=== PATIENT | female | born 1975 | race Caucasian/White ===

== ENCOUNTER → 2018-04-18 08:27 | Outpatient (CLI) | payer OTHER, SELFPAY ==
[2018-04-18 12:00] LABS: Absolute Lymphocyte Count 2.18 X10^3/ul (0.83-4.51); Absolute Neutrophil Count 3.6 X10^3/uL (2.0-7.7); Basophil# 0.03 X10^3/uL; Basophil% 0.5 % (0-1); Eosinophil# 0.15 X10^3/uL; Eosinophils% 2.3 % (0-5); Hematocrit 33.5 % (37-47); Hemoglobin 10.4 g/dl (12.0-15.0); Lymphocyte # 2.18 X10^3/ul (4.0); Lymphocyte % 33.5 % (19-41); Mean Corpuscular Hgb 26.1 pg (27.0-32.0); Mean Corpuscular Volume 84.2 fL (81-99); Mean Platelet Vol. 10.1 fl (6.2-12.0); Monocyte# 0.51 X10^3/uL; Monocyte% 7.8 % (0-10); Neutrophil # 3.63 X10^3/uL (2.7-7.7); Neutrophil % 55.7 % (47-70); Platelet Count 273 K/mm3 (150-450); RBC Distribution Width CV 15.8 % (11.6-14.6); RBC Distribution Width SD 47.7 fl (35.1-43.9); Red Blood Count 3.98 M/mm3 (4.2-5.4); White Blood Count 6.5 K/mm3 (4.4-11.0)
[2018-04-18 12:09] LABS: POSITIVE COUNT NO; POSITIVE DIFFERENTIAL NO; POSITIVE MORPHOLOGY NO
[2018-04-18 12:13] LABS: ALB/GLOB Ratio 0.9 RATIO (0.9-2.4); AST(SGOT) 29 U/L (15-37); Alanine Aminotransfer ALT/SGPT 41 U/L (13-56); Albumin, Serum 3.4 g/dL (3.2-5.0); Alkaline Phosphatase 83 U/L (45-117); Anion Gap 9 (5-15); BUN 16 mg/dL (7-18); BUN/Creat Ratio 18.6 RATIO (10-20); Calcium,Total 8.2 mg/dL (8.5-10.1); Chloride 104 mmol/L (98-107); Cholesterol 130 mg/dL (200); Creatinine, Serum 0.86 mg/dL (0.55-1.02); EST Glomerular Filtration Rate 77 mL/min (>60); Est Glom Filt Rate - Afr Amer 93 mL/min (>60); Globulin 3.7 g/dL (2.2-4.2); Glucose 78 mg/dL (74-106); High Density Lipoprotein 60 mg/dL; Potassium 3.8 mmol/L (3.5-5.1); Protein, Total 7.1 g/dL (6.4-8.2); Sodium Level 141 mmol/L (136-145); Triglycerides 45 mg/dL; Very Low Density Lipoprotein 9 mg/dL (5-40)
[2018-04-18 12:30] LABS: Microalbumin,Random Urine 5.6 mg/L (NO RANGE EST.)
== END ==
PROVIDERS: Family Provider Family Medicine; PCP Family Medicine; Visit Provider Family Medicine
DX: Z00.00 Encounter for general adult medical examination without abnormal findings (principal); I10 Essential (primary) hypertension
CPT/HCPCS: 36415; 80053; 80061; 82043; 82570; 85025

== ENCOUNTER → 2018-04-25 15:50 | Outpatient (CLI) | payer OTHER, SELFPAY ==
[2018-04-25 17:39] LABS: Absolute Lymphocyte Count 1.91 X10^3/ul (0.83-4.51); Absolute Neutrophil Count 3.5 X10^3/uL (2.0-7.7); Basophil# 0.03 X10^3/uL; Basophil% 0.5 % (0-1); Eosinophil# 0.13 X10^3/uL; Eosinophils% 2.1 % (0-5); Hematocrit 35.9 % (37-47); Hemoglobin 11.1 g/dl (12.0-15.0); Lymphocyte # 1.91 X10^3/ul (4.0); Lymphocyte % 31.3 % (19-41); Mean Corp Hgb Conc 30.9 g/gl (32-36); Mean Corpuscular Hgb 25.3 pg (27.0-32.0); Mean Corpuscular Volume 81.8 fL (81-99); Mean Platelet Vol. 9.6 fl (6.2-12.0); Monocyte# 0.52 X10^3/uL; Monocyte% 8.5 % (0-10); Neutrophil % 57.4 % (47-70); Platelet Count 277 K/mm3 (150-450); RBC Distribution Width CV 15.7 % (11.6-14.6); RBC Distribution Width SD 47.2 fl (35.1-43.9); Red Blood Count 4.39 M/mm3 (4.2-5.4); White Blood Count 6.1 K/mm3 (4.4-11.0)
[2018-04-25 17:43] LABS: Ferritin 7 ng/mL (8-252); Iron 28 ug/dL (50-170); LDH 207 U/L (84-246)
[2018-04-25 17:45] LABS: POSITIVE COUNT NO; POSITIVE DIFFERENTIAL NO; POSITIVE MORPHOLOGY NO
[2018-04-25 17:51] LABS: Vitamin B12 433 pg/mL (211-911); Vitamin D,25 Hydroxy 37.5 ng/mL (29.95-100.01)
== END ==
PROVIDERS: Family Provider Family Medicine; PCP Family Medicine; Visit Provider Family Medicine
DX: I10 Essential (primary) hypertension (principal); R80.9 Proteinuria, unspecified; D64.9 Anemia, unspecified
CPT/HCPCS: 36415; 82306; 82607; 82728; 83540; 83615; 85025

== ENCOUNTER → 2018-11-10 16:51 | Outpatient (CLI) | payer OTHER, SELFPAY ==
--- NOTE | 2018-11-10 16:51 | BI_ITS ---
MAMMOGRAPHY - BILATERAL SCREENING REASON FOR EXAM: Female, 43 years old. Routine annual screening examination. PERTINENT HISTORY: Non-contributory. TECHNIQUE: Digital bilateral breast anuel (3D mammographic acquisition) in the CC and MLO projections. 2-D mediolateral oblique (MLO) and craniocaudad (CC) views of both breasts were obtained. CAD: Full Field Digital Mammography with Computer Added Detection was performed. COMPARISON: Comparison is made with prior study dated March 05, 2016. FINDINGS: Breast Composition: The breasts are almost entirely fatty. There are no dominant masses or suspicious calcifications. No other significant abnormalities are identified. There has been no significant change since the prior study. BI/SCREENING MAMM (CAD), BILAT IMPRESSION: Stable bilateral screening mammogram. Yearly follow-up mammogram recommended. (A) ASSESSMENT CATEGORY: BIRADS Category 1: Negative. A letter regarding these results will be sent to the patient by the facility within 30 days. Approximately 10% of breast cancers are not detected by mammography. A normal mammogram should not delay biopsy of a clinically suspicious abnormality. [id number] Electronically Signed: Matias Smith, at 9:52 EST , Service support ,
== END ==
PROVIDERS: Family Provider Family Medicine; PCP Family Medicine; Referring Provider Obstetrics & Gynecology; Visit Provider Obstetrics & Gynecology
DX: Z12.31 Encounter for screening mammogram for malignant neoplasm of breast (principal)
CPT/HCPCS: 77063; 77067

== ENCOUNTER → 2019-01-19 17:57 | Outpatient (CLI) | payer OTHER, SELFPAY ==
--- NOTE | 2019-01-19 18:11 | MRI_ITS ---
STUDY: MRI LEFT FOREFOOT WITHOUT CONTRAST REASON FOR EXAM: Female, 44 years old. Pain. Numbness in this toes. Evaluate first intermetatarsal space TECHNIQUE: Standardized fat and water weighted pulse sequences were obtained in all 3 orthogonal planes. COMPARISON: None. FINDINGS: Joint effusion metatarsophalangeal joint of the hallux. Normal tibial and fibular sesamoids, with normal sesamoids-first metatarsal articulations. Normal interphalangeal joint of the hallux. Normal proximal and distal phalanges of the great toe. Normal medial and lateral heads of the flexor hallucis brevis tendons. Normal flexor and extensor hallucis longus tendons. Effusions of the second through fifth metatarsophalangeal (MTP) joints. Normal interphalangeal joints of the second through fifth toes. Normal proximal, middle and distal phalanges of the second through fifth toes. There is intermetatarsal bursitis of the first through fourth intermetatarsal spaces, coronal series 9 images 14/24 through 16/24. There is a 0.4 cm interdigital neuroma at the second interspace, series 7 image 26/40. Normal flexor and extensor tendons of the second through fifth toes. Marrow edema of the base and proximal shaft of the second metatarsal, series 9 image 11/24. Marrow edema of the medial and intermediate cuneiform bones. Normal intrinsic muscles of the forefoot. There is no demonstrated soft tissue abnormality. MRI/Lower Ext/No Jt/w/o IMPRESSION: Joint effusions of the metatarsophalangeal articulations. There is intermetatarsal bursitis of the first through fourth interspaces. There is interdigital neuroma at the second interspace. Bone bruise or stress injury of the base of the second metatarsal and the medial and intermediate cuneiform bones. Electronically Signed: Jr Santa MD at 8:25 EDT , Service support ,
== END ==
PROVIDERS: Family Provider Family Medicine; PCP Family Medicine; Referring Provider Podiatrist; Visit Provider Podiatrist
DX: S94.2 Injury of deep peroneal nerve at ankle and foot level (principal); G57.62 Lesion of plantar nerve, left lower limb; S90.32XD Contusion of left foot, subsequent encounter; M79.672 Pain in left foot
CPT/HCPCS: 73718

== ENCOUNTER → 2019-08-14 10:16 | Outpatient (CLI) | payer OTHER, SELFPAY ==
[2017-05-15 21:00] VITALS: BMI 30.4
[2019-08-14 12:29] LABS: ALB/GLOB Ratio 0.9 RATIO (0.9-2.4); AST(SGOT) 32 U/L (15-37); Alanine Aminotransfer ALT/SGPT 57 U/L (13-56); Albumin, Serum 3.6 g/dL (3.2-5.0); Alkaline Phosphatase 89 U/L (45-117); Anion Gap 7 (5-15); BUN 11 mg/dL (7-18); BUN/Creat Ratio 13.6 RATIO (10-20); Calcium,Total 8.6 mg/dL (8.5-10.1); Chloride 104 mmol/L (98-107); Cholesterol 143 mg/dL (200); Creatinine, Serum 0.81 mg/dL (0.55-1.02); EST Glomerular Filtration Rate 81 mL/min (>60); Est Glom Filt Rate - Afr Amer 98 mL/min (>60); Glucose 115 mg/dL (74-106); High Density Lipoprotein 64 mg/dL; Potassium 3.3 mmol/L (3.5-5.1); Protein, Total 7.6 g/dL (6.4-8.2); Sodium Level 137 mmol/L (136-145); T4 Free Direct 1.14 ng/dL (0.76-1.46); Triglycerides 66 mg/dL; Very Low Density Lipoprotein 13 mg/dL (5-40)
[2019-08-14 12:36] LABS: Absolute Lymphocyte Count 1.83 X10^3/uL (0.83-4.51); Absolute Neutrophil Count 5.1 X10^3/uL (2.0-7.7); Basophil# 0.04 X10^3/uL; Basophil% 0.5 % (0-1); Eosinophil# 0.14 X10^3/uL; Eosinophils% 1.8 % (0-5); Hematocrit 39.1 % (37-47); Hemoglobin 12.2 g/dL (12.0-15.0); Lymphocyte # 1.83 X10^3/ul (4.0); Lymphocyte % 23.6 % (19-41); Mean Corp Hgb Conc 31.2 g/dL (32-36); Mean Corpuscular Hgb 27.1 pg (27.0-32.0); Mean Corpuscular Volume 86.7 fL (81-99); Mean Platelet Vol. 9.6 fl (6.2-12.0); Monocyte# 0.59 X10^3/uL; Monocyte% 7.6 % (0-10); NRBC Flagged by Analyzer 0 % (0-5); Neutrophil # 5.12 X10^3/uL (2.7-7.7); Neutrophil % 66.1 % (47-70); Platelet Count 332 K/mm3 (150-450); RBC Distribution Width CV 14.3 % (11.6-14.6); RBC Distribution Width SD 45.1 fl (35.1-43.9); Red Blood Count 4.51 M/mm3 (4.2-5.4); White Blood Count 7.8 K/mm3 (4.4-11.0)
== END ==
PROVIDERS: Family Provider Family Medicine; PCP Family Medicine; Visit Provider Family Medicine
DX: Z00.00 Encounter for general adult medical examination without abnormal findings (principal); R53.83 Other fatigue
CPT/HCPCS: 36415; 80053; 80061; 84439; 84443; 85025

== ENCOUNTER → 2020-08-26 17:29 | Outpatient (CLI) | payer OTHER, SELFPAY | PROVIDERS: PCP Family Medicine; Referring Provider Family Medicine; Visit Provider Family Medicine | DX: Z03.818 Encounter for observation for suspected exposure to other biological agents ruled out (principal) | CPT/HCPCS: 87635; C9803; U0003 ==

== ENCOUNTER 2021-11-15 10:28 | Outpatient (CLI) | payer OTHER, SELFPAY ==
[2021-11-19 13:37] LABS: Thyroid Stim Immunoglob 4.93 IU/L (0.00-0.55)
== END 2021-11-15 23:59 | disposition home or self-care (01) ==
LOC: LAB 10:30
PROVIDERS: PCP Family Medicine; Referring Provider Family Medicine; Visit Provider Family Medicine
DX: E05.90 Thyrotoxicosis, unspecified without thyrotoxic crisis or storm (principal)
CPT/HCPCS: 36415; 84445

== ENCOUNTER 2021-12-18 07:18 | Outpatient (CLI) | payer OTHER, SELFPAY ==
[2021-12-18 09:06] LABS: Free T3 3.4 pg/mL (2.18-3.98); T4 Free Direct 1.41 ng/dL (0.76-1.46)
== END 2021-12-18 23:59 | disposition home or self-care (01) ==
LOC: LAB 07:19
PROVIDERS: PCP Family Medicine; Referring Provider Internal Medicine Endocrinology, Diabetes & Metabolism; Visit Provider Internal Medicine Endocrinology, Diabetes & Metabolism
DX: E05.00 Thyrotoxicosis with diffuse goiter without thyrotoxic crisis or storm (principal)
CPT/HCPCS: 36415; 84439; 84481

== ENCOUNTER → 2022-01-21 | Outpatient (CLI) | payer OTHER, SELFPAY ==
[2022-01-21 08:05] LABS: Free T3 2.4 pg/mL (2.18-3.98); T4 Free Direct 1.05 ng/dL (0.76-1.46)
== END | disposition home or self-care (01) ==
LOC: LAB 06:49
PROVIDERS: PCP Family Medicine; Referring Provider Nurse Practitioner Adult Health; Visit Provider Nurse Practitioner Adult Health
DX: E05.00 Thyrotoxicosis with diffuse goiter without thyrotoxic crisis or storm (principal)
CPT/HCPCS: 36415; 84439; 84481

== ENCOUNTER → 2022-02-12 | Outpatient (CLI) | payer OTHER, SELFPAY ==
[2022-02-12 11:16] LABS: Absolute Lymphocyte Count 1.75 X10^3/uL (0.83-4.51); Basophil# 0.03 X10^3/uL; Basophil% 0.6 % (0-1); Eosinophils% 1.8 % (0-5); Hematocrit 37.8 % (37-47); Hemoglobin 12.1 g/dL (12.0-15.0); Lymphocyte # 1.75 X10^3/ul (0.83-4.51); Lymphocyte % 32.2 % (19-41); Mean Corpuscular Hgb 27.4 pg (27.0-32.0); Mean Corpuscular Volume 85.5 fL (81-99); Mean Platelet Vol. 9.6 fl (6.2-12.0); Monocyte# 0.53 X10^3/uL; Monocyte% 9.7 % (0-10); NRBC Flagged by Analyzer 0 % (0-5); Neutrophil # 3.02 X10^3/uL (2.7-7.7); Neutrophil % 55.5 % (47-70); Platelet Count 253 K/mm3 (150-450); RBC Distribution Width CV 14.6 % (11.6-14.6); RBC Distribution Width SD 45.9 fl (35.1-43.9); Red Blood Count 4.42 M/mm3 (4.2-5.4); White Blood Count 5.4 K/mm3 (4.4-11.0)
[2022-02-12 15:26] LABS: ALB/GLOB Ratio 0.8 RATIO (0.9-2.4); AST(SGOT) 22 U/L (15-37); Alanine Aminotransfer ALT/SGPT 35 U/L (13-56); Albumin, Serum 3.3 g/dL (3.2-5.0); Alkaline Phosphatase 105 U/L (45-117); Anion Gap 6 (5-15); BUN 13 mg/dL (7-18); BUN/Creat Ratio 18.4 RATIO (10-20); Calcium,Total 8.8 mg/dL (8.5-10.1); Chloride 106 mmol/L (98-107); Creatinine, Serum 0.71 mg/dL (0.55-1.02); EST Glomerular Filtration Rate 94 mL/min (>60); Est Glom Filt Rate - Afr Amer 114 mL/min (>60); Glucose 93 mg/dL (74-106); Potassium 3.9 mmol/L (3.5-5.1); Protein, Total 7.3 g/dL (6.4-8.2); Sodium Level 138 mmol/L (136-145); Thyroid Stim Hormone (TSH) < 0.01 uIU/mL (0.358-3.74)
== END | disposition home or self-care (01) ==
LOC: LAB 09:59
PROVIDERS: PCP Family Medicine; Visit Provider Nurse Practitioner Adult Health
DX: E05.00 Thyrotoxicosis with diffuse goiter without thyrotoxic crisis or storm (principal); E61.1 Iron deficiency
CPT/HCPCS: 36415; 80053; 84439; 84443; 84481; 85025

== ENCOUNTER → 2022-03-10 | Outpatient (CLI) | payer OTHER, SELFPAY ==
[2022-03-10 10:21] LABS: Free T3 3.2 pg/mL (2.18-3.98); T4 Free Direct 1.33 ng/dL (0.76-1.46)
== END | disposition home or self-care (01) ==
LOC: LAB 08:51
PROVIDERS: PCP Family Medicine; Referring Provider Nurse Practitioner Adult Health; Visit Provider Nurse Practitioner Adult Health
DX: E05.00 Thyrotoxicosis with diffuse goiter without thyrotoxic crisis or storm (principal)
CPT/HCPCS: 36415; 84439; 84481

== ENCOUNTER → 2022-04-01 | Outpatient (CLI) | payer OTHER, SELFPAY ==
[2022-04-01 11:09] LABS: ALB/GLOB Ratio 0.8 RATIO (0.9-2.4); AST(SGOT) 23 U/L (15-37); Alanine Aminotransfer ALT/SGPT 36 U/L (13-56); Albumin, Serum 3.4 g/dL (3.2-5.0); Alkaline Phosphatase 93 U/L (45-117); Anion Gap 7 (5-15); BUN 17 mg/dL (7-18); BUN/Creat Ratio 19.8 RATIO (10-20); Calcium,Total 8.9 mg/dL (8.5-10.1); Chloride 103 mmol/L (98-107); Creatinine, Serum 0.86 mg/dL (0.55-1.02); EST Glomerular Filtration Rate 75 mL/min (>60); Est Glom Filt Rate - Afr Amer 91 mL/min (>60); Free T3 3.4 pg/mL (2.18-3.98); Glucose 101 mg/dL (74-106); Potassium 3.5 mmol/L (3.5-5.1); Protein, Total 7.4 g/dL (6.4-8.2); Sodium Level 137 mmol/L (136-145); T4 Free Direct 1.53 ng/dL (0.76-1.46); Thyroid Stim Hormone (TSH) < 0.01 uIU/mL (0.358-3.74)
== END | disposition home or self-care (01) ==
LOC: LAB 10:21
PROVIDERS: PCP Family Medicine; Referring Provider Nurse Practitioner Adult Health; Visit Provider Nurse Practitioner Adult Health
DX: E05.00 Thyrotoxicosis with diffuse goiter without thyrotoxic crisis or storm (principal)
CPT/HCPCS: 36415; 80053; 84439; 84443; 84481

== ENCOUNTER → 2022-04-27 | Outpatient (CLI) | payer OTHER, SELFPAY ==
[2022-04-27 08:38] LABS: Anion Gap 6 (5-15); BUN 18 mg/dL (7-18); BUN/Creat Ratio 20.2 RATIO (10-20); Calcium,Total 8.7 mg/dL (8.5-10.1); Chloride 104 mmol/L (98-107); Creatinine, Serum 0.89 mg/dL (0.55-1.02); EST Glomerular Filtration Rate 72 mL/min (>60); Est Glom Filt Rate - Afr Amer 87 mL/min (>60); Glucose 93 mg/dL (74-106); Potassium 3.8 mmol/L (3.5-5.1); Sodium Level 138 mmol/L (136-145)
[2022-04-30 10:09] LABS: Free T3 2.8 pg/mL (2.18-3.98); T4 Free Direct 1.18 ng/dL (0.76-1.46)
== END | disposition home or self-care (01) ==
LOC: LAB 07:35
PROVIDERS: PCP Family Medicine; Referring Provider Nurse Practitioner Adult Health; Visit Provider Nurse Practitioner Adult Health
DX: E05.00 Thyrotoxicosis with diffuse goiter without thyrotoxic crisis or storm (principal)
CPT/HCPCS: 36415; 80048; 84439; 84481

== ENCOUNTER → 2022-05-14 | Outpatient (CLI) | payer OTHER, SELFPAY ==
[2022-05-14 08:06] LABS: Free T3 2.5 pg/mL (2.18-3.98); T4 Free Direct 0.98 ng/dL (0.76-1.46); Thyroid Stim Hormone (TSH) 0.09 uIU/mL (0.358-3.74)
== END | disposition home or self-care (01) ==
LOC: LAB 06:34
PROVIDERS: PCP Family Medicine; Referring Provider Internal Medicine Endocrinology, Diabetes & Metabolism; Visit Provider Internal Medicine Endocrinology, Diabetes & Metabolism
DX: E05.00 Thyrotoxicosis with diffuse goiter without thyrotoxic crisis or storm (principal)
CPT/HCPCS: 36415; 84439; 84443; 84481

== ENCOUNTER → 2022-05-30 | Outpatient (CLI) | payer OTHER, SELFPAY ==
[2022-05-30 10:30] LABS: T4 Free Direct 0.82 ng/dL (0.76-1.46); Thyroid Stim Hormone (TSH) 1.57 uIU/mL (0.358-3.74)
== END | disposition home or self-care (01) ==
LOC: LAB 09:11
PROVIDERS: PCP Family Medicine; Referring Provider Internal Medicine Endocrinology, Diabetes & Metabolism; Visit Provider Internal Medicine Endocrinology, Diabetes & Metabolism
DX: E05.00 Thyrotoxicosis with diffuse goiter without thyrotoxic crisis or storm (principal)
CPT/HCPCS: 36415; 84439; 84443; 84481

== ENCOUNTER → 2022-06-12 | Outpatient (CLI) | payer OTHER, SELFPAY ==
[2022-06-12 08:50] LABS: Anion Gap 8 (5-15); BUN 12 mg/dL (7-18); BUN/Creat Ratio 12.2 RATIO (10-20); Calcium,Total 9.5 mg/dL (8.5-10.1); Chloride 101 mmol/L (98-107); Creatinine, Serum 0.98 mg/dL (0.55-1.02); EST Glomerular Filtration Rate 64 mL/min (>60); Est Glom Filt Rate - Afr Amer 78 mL/min (>60); Glucose 113 mg/dL (74-106); Potassium 3.2 mmol/L (3.5-5.1); Sodium Level 139 mmol/L (136-145)
== END | disposition home or self-care (01) ==
LOC: LAB 07:33
PROVIDERS: PCP Family Medicine; Referring Provider Internal Medicine Endocrinology, Diabetes & Metabolism; Visit Provider Internal Medicine Endocrinology, Diabetes & Metabolism
DX: E05.00 Thyrotoxicosis with diffuse goiter without thyrotoxic crisis or storm (principal)
CPT/HCPCS: 36415; 80048

== ENCOUNTER → 2022-06-15 | Outpatient (CLI) | payer OTHER, SELFPAY ==
[2022-06-15 15:30] LABS: Anion Gap 10 (5-15); BUN 13 mg/dL (7-18); Calcium,Total 8.9 mg/dL (8.5-10.1); Chloride 100 mmol/L (98-107); Creatinine, Serum 0.93 mg/dL (0.55-1.02); EST Glomerular Filtration Rate 69 mL/min (>60); Est Glom Filt Rate - Afr Amer 83 mL/min (>60); Glucose 97 mg/dL (74-106); Magnesium 1.7 mg/dL (1.6-2.6); Potassium 3.3 mmol/L (3.5-5.1); Sodium Level 136 mmol/L (136-145)
== END | disposition home or self-care (01) ==
LOC: LAB 13:40
PROVIDERS: PCP Family Medicine; Referring Provider Nurse Practitioner Adult Health; Visit Provider Nurse Practitioner Adult Health
DX: E89.0 Postprocedural hypothyroidism (principal); E61.2 Magnesium deficiency; E87.6 Hypokalemia
CPT/HCPCS: 36415; 80048; 83735

== ENCOUNTER → 2022-06-22 | Outpatient (CLI) | payer OTHER, SELFPAY ==
[2022-06-22 17:35] LABS: Anion Gap 6 (5-15); BUN 18 mg/dL (7-18); BUN/Creat Ratio 18.5 RATIO (10-20); Calcium,Total 9.2 mg/dL (8.5-10.1); Chloride 103 mmol/L (98-107); Creatinine, Serum 0.98 mg/dL (0.55-1.02); EST Glomerular Filtration Rate 65 mL/min (>60); Est Glom Filt Rate - Afr Amer 79 mL/min (>60); Glucose 99 mg/dL (74-106); Potassium 3.8 mmol/L (3.5-5.1); Sodium Level 138 mmol/L (136-145)
== END | disposition home or self-care (01) ==
LOC: LAB 16:29
PROVIDERS: PCP Family Medicine; Referring Provider Internal Medicine Endocrinology, Diabetes & Metabolism; Visit Provider Internal Medicine Endocrinology, Diabetes & Metabolism
DX: E87.6 Hypokalemia (principal)
CPT/HCPCS: 36415; 80048

== ENCOUNTER → 2022-07-23 | Outpatient (CLI) | payer OTHER, SELFPAY ==
[2022-07-23 08:45] LABS: ALB/GLOB Ratio 0.9 RATIO (0.9-2.4); AST(SGOT) 27 U/L (15-37); Alanine Aminotransfer ALT/SGPT 47 U/L (13-56); Albumin, Serum 3.4 g/dL (3.2-5.0); Alkaline Phosphatase 110 U/L (45-117); Anion Gap 5 (5-15); BUN 16 mg/dL (7-18); BUN/Creat Ratio 17.3 RATIO (10-20); Calcium,Total 8.8 mg/dL (8.5-10.1); Chloride 103 mmol/L (98-107); Creatinine, Serum 0.93 mg/dL (0.55-1.02); EST Glomerular Filtration Rate 69 mL/min (>60); Est Glom Filt Rate - Afr Amer 83 mL/min (>60); Globulin 3.9 g/dL (2.2-4.2); Glucose 92 mg/dL (74-106); Protein, Total 7.3 g/dL (6.4-8.2); Sodium Level 136 mmol/L (136-145)
== END | disposition home or self-care (01) ==
LOC: LAB 07:13
PROVIDERS: PCP Family Medicine; Visit Provider Nurse Practitioner Adult Health
DX: E89.0 Postprocedural hypothyroidism (principal)
CPT/HCPCS: 36415; 80053; 84439; 84443

== ENCOUNTER → 2022-09-03 | Outpatient (CLI) | payer OTHER, SELFPAY ==
[2022-09-03 12:39] LABS: Anion Gap 3 (5-15); BUN 18 mg/dL (7-18); BUN/Creat Ratio 18.1 RATIO (10-20); Calcium,Total 9.3 mg/dL (8.5-10.1); Chloride 105 mmol/L (98-107); Creatinine, Serum 0.99 mg/dL (0.55-1.02); EST Glomerular Filtration Rate 64 mL/min (>60); Est Glom Filt Rate - Afr Amer 77 mL/min (>60); Glucose 92 mg/dL (74-106); Potassium 4.3 mmol/L (3.5-5.1); Sodium Level 137 mmol/L (136-145); Thyroid Stim Hormone (TSH) 5.24 uIU/mL (0.358-3.74)
== END | disposition home or self-care (01) ==
LOC: LAB 11:25
PROVIDERS: PCP Family Medicine; Referring Provider Nurse Practitioner Adult Health; Visit Provider Nurse Practitioner Adult Health
DX: E89.0 Postprocedural hypothyroidism (principal)
CPT/HCPCS: 36415; 80048; 84443

== ENCOUNTER → 2022-10-19 | Outpatient (CLI) | payer OTHER, SELFPAY ==
[2022-10-19 18:39] LABS: Thyroid Stim Hormone (TSH) 0.35 uIU/mL (0.358-3.74)
== END | disposition home or self-care (01) ==
LOC: MTLAB 16:45
PROVIDERS: PCP Family Medicine; Referring Provider Internal Medicine Endocrinology, Diabetes & Metabolism; Visit Provider Internal Medicine Endocrinology, Diabetes & Metabolism
DX: E89.0 Postprocedural hypothyroidism (principal)
CPT/HCPCS: 36415; 84443

== ENCOUNTER → 2022-12-23 | Outpatient (CLI) | payer OTHER, SELFPAY ==
[2022-12-23 12:00] LABS: ALB/GLOB Ratio 0.9 RATIO (0.9-2.4); AST(SGOT) 32 U/L (15-37); Alanine Aminotransfer ALT/SGPT 49 U/L (13-56); Albumin, Serum 3.6 g/dL (3.2-5.0); Alkaline Phosphatase 117 U/L (45-117); Anion Gap 3 (5-15); BUN 14 mg/dL (7-18); BUN/Creat Ratio 14.7 RATIO (10-20); Calcium,Total 9.6 mg/dL (8.5-10.1); Chloride 106 mmol/L (98-107); Creatinine, Serum 0.96 mg/dL (0.55-1.02); EST Glomerular Filtration Rate 66 mL/min (>60); Est Glom Filt Rate - Afr Amer 80 mL/min (>60); Globulin 4.2 g/dL (2.2-4.2); Glucose 97 mg/dL (74-106); Protein, Total 7.8 g/dL (6.4-8.2); Sodium Level 136 mmol/L (136-145); Thyroid Stim Hormone (TSH) 0.91 uIU/mL (0.358-3.74)
== END | disposition home or self-care (01) ==
LOC: LAB 10:30
PROVIDERS: PCP Family Medicine; Referring Provider Internal Medicine Endocrinology, Diabetes & Metabolism; Visit Provider Internal Medicine Endocrinology, Diabetes & Metabolism
DX: E89.0 Postprocedural hypothyroidism (principal)
CPT/HCPCS: 36415; 80053; 84443

== ENCOUNTER → 2023-02-15 | Outpatient (CLI) | payer OTHER, SELFPAY ==
--- NOTE | 2023-02-15 12:50 | RAD_ITS ---
EXAM: XR LUMBOSACRAL SPINE, 4 OR 5 VIEWS CLINICAL INDICATION: SCIATICA TECHNIQUE: Frontal, lateral and bilateral oblique views of the lumbar spine. COMPARISON: No relevant prior studies available. FINDINGS: VERTEBRAE: Unremarkable. Preserved vertebral body height. No fracture. No spondylolisthesis. Preservation of the normal lumbar lordosis. No significant facet arthropathy. DISC SPACES: No acute findings. Disc spaces are maintained. SOFT TISSUES: There are bilateral tubal ligation clips present. GASTROINTESTINAL TRACT: Unremarkable as visualized. Included bowel gas pattern is non-obstructive. RAD/L/S Spine Min 4 Views IMPRESSION: No acute findings in the lumbar spine. Electronically Signed: Sanford Gray MD at 0:02 EDT ,
== END | disposition home or self-care (01) ==
LOC: MTRAD 12:49
PROVIDERS: PCP Family Medicine; Referring Provider Family Medicine; Visit Provider Family Medicine
DX: M54.17 Radiculopathy, lumbosacral region (principal)
CPT/HCPCS: 72110

== ENCOUNTER 2023-04-08 07:00 | Outpatient (RCR) | payer OTHER, SELFPAY ==
--- NOTE | 2023-02-25 12:58 | HP.PTEVAL ---
Patient's Visit Information CHELSEA STOUT is a 48 year old F referred to Physical Therapy by Dr. Pramod Ford DO with a diagnosis of Lumbar radiculopathy, M54.17. Date of Evaluation: 02/25/23 Physical Therapist: Florencio Angel - Visit Plan Frequency: 2x /Week Duration: 6 Weeks Plan: Continue with trial of lumbar extension exercises to centralize left leg symptoms. Also continue with nerve glides, core/back/hip strengthening. Use manual therapy, lumbar traction, and modalities as needed for pain control. - Subjective Pt. is a 48 y.o. female who has been having back pain for about two months after she fell which resolved some but then about two weeks ago she noticed that she was having pain/numbness in her left leg. She reports that two weeks ago she was moving things as it was the last week of school so she is not sure if she did something then. Pt. PLOF includes no history of back or left leg pain in the past. She had x-ray of her lumbar spine which was negative and has not had any other imaging. She reports constant numbness in her foot and pain in the leg comes and goes. Pt. denies any change in her bowel or bladder function or unexplained weight loss. She has difficulty with standing longer than 5 minutes, sitting longer than 30 minutes, walking longer than 5 minutes, walking on uneven ground, lifting things, pushing/pulling, sleeping, driving, housework, and yard work. 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 Her goal with physical therapy is to get rid of her pain and get stronger. She has never had physical therapy before. Pt. denies any pain currently, at worst 7/10 and describes the pain as numbness, tingling, shooting, and cramping. She is currently taking Gabapentin and Ibuprofen. Her PMH includes thyroid removed and three C-sections. 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 - Objective Posture- Good posture in standing. Palpation- No tenderness to palpation. Lumbar flexion x 10- moderate restriction and increased pain down left leg and no change in numbness in left foot. Lumbar extension x 10- WNL and no change in pain down left leg or foot. Lumbar SB x 10 to left- WNL and no change in pain down left leg or foot. Lumbar SB x 10 to right- WNL and no change in pain down right leg or foot. Rotation bilaterally- WNL and no change in pain. Hip PROM- WNL bilaterally. Pelvis and leg length- normal in supine. Left hip strength flexion 4+/5, abduction 4-/5, adduction 5/5, extension 4-/5, knee flexion 5/5, knee extension 4+/5, ankle DF 5/5, ankle PF 5/5. Right hip strength flexion 4+/5, abduction 4-/5, adduction 5/5, extension 4-/5, knee flexion 5/5, knee extension 5/5, ankle DF 5/5, ankle PF 5/5. Sensation- WNL bilateral lower extremities. Special tests- Straight leg raise [+ left], Well's leg raise [-], Slump test [+ left]. Gait- Pt. ambulates with slight antalgic gait pattern of left lower extremity. - Balance/Special Test Scores Oswestry Low Back Score: 30 - Goals Goal 1:: Pt. will centralize symptoms from left leg to low back. Goal Time Frame: 4-6 Weeks Goal 2:: Pt. will be able to stand/walk for at least 30 minutes with pain < 3/10. Goal Time Frame: 4-6 Weeks Goal 3:: Pt. will be able to sleep a full night with no pain or medication. Goal Time Frame: 4-6 Weeks Goal 4:: Pt. will be able to lift at least 30# with proper body mechanics and no pain. Goal Time Frame: 4-6 Weeks Goal 5:: Pt. will rate pain at worst at 3/10 with ADL's and IADL's. Goal Time Frame: 4-6 Weeks Goal 6:: Pt. will improve Oswestry Disability for the back < 30% disability in order to improve ADL's. Goal Time Frame: 4-6 Weeks - Rehabilitation Potential Physical Therapy Diagnosis: Decreased lumbar ROM, core/back strength, and pain. Pt. presents at this time with possible lumbar radiculopathy. Rehabilitation Potential: Good - Anticipated Interventions Patient/Client Instruction: Educate patient on: Condition, Plan of Care, Benefits of Fitness Program For the Purpose of:: To decrease pain, To improve ability to perform ADL's, To improve performance and independence with ADL's, To increase flexibility/ROM, To assume or resume ADL's, To improve tolerance to ADL's Therapeutic Exercise to Include: Strength training, Body mechanics, Postural training, Flexibilty training, Active ROM, Dynamic Lumbar Stabilization, Nicole Exercises Comment: Continue with trial of lumbar extension based exercises, nerve glides, core, and back strengthening. Also educate on proper lifting mechanics. For the Purpose of:: To decrease pain, To improve ability to perform ADL's, To improve performance and independence with ADL's, To improve ability of physical actions for home/community/work/leisure, To improve tolerance to ADL's Manual Therapy Techniques to Include: Mobilization, Soft tissue mobilization For the Purpose of:: To decrease pain, To increase ROM, To improve ability to perform ADL's, To improve performance and independence with ADL's, To improve ability of physical actions for home/community/work/leisure, To assume or resume ADL's, To improve tolerance to ADL's TENS: Yes IF ES: Yes Cryotherapy (ice pack, ice massage): Yes Thermo therapy (hot pack): Yes Pelvic traction prone: Yes Pelvic traction supine: Yes For the Purpose of:: To decrease pain, To increase ROM, To improve ability to perform ADL's, To improve performance and independence with ADL's, To improve ability of physical actions for home/community/work/leisure, To assume or resume ADL's, To improve tolerance to ADL's Thank you for the opportunity to evaluate your patient. For Medicare and Medicare HMO plans, please review the plan of care and approve it. It will need to be FAXED BACK to us at [phone] for Medicare purposes. For Medicare only, by signing this I certify the plan of care. Please let me know if there are questions or concerns regarding this plan of care. Physician Signature: Date:
--- NOTE | 2023-04-15 08:00 | HP.PTDCSUM ---
Discharge Summary D/C summary: It has been my pleasure to treat CHELSEA STOUT referred by Dr. Pramod Ford DO, with the diagnosis of Lumbar radiculopathy, M54.17 for a total of 11 visit(s). Discharge Date: 04/08/23 Please see the following information for a summary of their discharge status. Subjective Subjective: Pt. reports not much change in her recent symptoms. Her pain has improved, but still having a lot of tinglging in her LE. Pain left HS/thigh: Pain Intensity (Out of 10): 0 Overall Improvement % Improvement: 35 Objective Objective/Function: ROM: Pt. continues to have increaed difficulty iwth fwrd flexion. Pt. has improved extension and this does reduce her symptoms, but no change in N/T. MMT: 5/5 throughout, core strength: fair. gait; Pt. has slight antalgic pattern during L stance phase, but rest is normal. Pt. continues to have increased symptoms with mobilization of her L3-L5 region. At this point in time she is not having enough progress with her N/T to continue with PT and I would like her to follow back up with physician. Goals Goal 1:: Pt. will centralize symptoms from left leg to low back. Goal Progress: Goal Met Goal 2:: Pt. will be able to stand/walk for at least 30 minutes with pain < 3/10. Goal Progress: Progressing Goal 3:: Pt. will be able to sleep a full night with no pain or medication. Goal Progress: Progressing Goal 4:: Pt. will be able to lift at least 30# with proper body mechanics and no pain. Goal Progress: Not Progressing Goal 5:: Pt. will rate pain at worst at 3/10 with ADL's and IADL's. Goal Progress: Progressing Goal 6:: Pt. will improve Oswestry Disability for the back < 30% disability in order to improve ADL's. Goal Progress: Progressing Plan Plan: DC back to physician at this point in time. D/C Information Discharge Comments: Pt. has had some improvement with her pain, but continues to have N/T in her L foot. I would like her to follow back up with physician due to this being unchanging. Pt. consents. d/c sentence: If there are questions or concerns regarding this patient's physical therapy, please feel free to call me at [phone]. Thank you for the referral of this patient. Sincerely, Tavo Esteves, DPT Balance/Gait/Functional tests Balance/Special Test Scores Oswestry Low Back Score: 17
== END 2023-04-08 19:00 | disposition home or self-care (01) ==
LOC: PT 07:00
PROVIDERS: PCP Family Medicine; Visit Provider Family Medicine
DX: M54.16 Radiculopathy, lumbar region (principal)
CPT/HCPCS: 97014; 97110; 97140; 97161; 97164; G0283

== ENCOUNTER → 2023-04-14 | Outpatient (CLI) | payer OTHER, SELFPAY ==
[2023-04-14 13:27] LABS: ALB/GLOB Ratio 0.9 RATIO (0.9-2.4); AST(SGOT) 29 U/L (15-37); Alanine Aminotransfer ALT/SGPT 48 U/L (13-56); Albumin, Serum 3.5 g/dL (3.2-5.0); Alkaline Phosphatase 101 U/L (45-117); Anion Gap 8 (5-15); BUN 14 mg/dL (7-18); BUN/Creat Ratio 15.8 RATIO (10-20); Calcium,Total 8.7 mg/dL (8.5-10.1); Chloride 105 mmol/L (98-107); Creatinine, Serum 0.89 mg/dL (0.55-1.02); EST Glomerular Filtration Rate 72 mL/min (>60); Est Glom Filt Rate - Afr Amer 87 mL/min (>60); Glucose 85 mg/dL (74-106); Potassium 3.6 mmol/L (3.5-5.1); Protein, Total 7.5 g/dL (6.4-8.2); Sodium Level 138 mmol/L (136-145); Thyroid Stim Hormone (TSH) 3.01 uIU/mL (0.358-3.74)
== END | disposition home or self-care (01) ==
LOC: LAB 12:04
PROVIDERS: PCP Family Medicine; Referring Provider Internal Medicine Endocrinology, Diabetes & Metabolism; Visit Provider Internal Medicine Endocrinology, Diabetes & Metabolism
DX: E89.0 Postprocedural hypothyroidism (principal)
CPT/HCPCS: 36415; 80053; 83735; 84443

== ENCOUNTER 2023-09-03 09:00 | Outpatient (RCR) | payer OTHER, SELFPAY ==
--- NOTE | 2023-07-15 18:45 | HP.PTEVAL_ITS ---
Patient's Visit Information Visit Information Visit Information: CHELSEA STOUT is a 48 year old F referred to Physical Therapy by GRETA BOND with a diagnosis of Lumbar disc herniation. Date of Evaluation: 07/15/23 Physical Therapist: Ridge Montes De Oca, KEISHAT, OCS, CSCS Visit Plan Frequency: 3x /Week Duration: 4-6 Weeks Plan: 3x/week for 3-6 weeks for 1. LB ROM progression 2. nerve root stretches L sciatic 3. core strength and L LE strength 4. Body mechanics for LB. Subjective Subjective: Fell in December and had mild pain. Flipping desks at end of school and it hurt the next day. Had shooting pain down L leg and no relief. Cramped up in thigh. Foot went numb and has been numb since. Had therapy 6 weeks prior to surgery in March and did not help. MRI in April and had 2 herniated discs. Went to surgeon and had surgery discectomies and laminectomies /facetectomy [id number]. 06/28/23 was surgery . pain prior to surgery constant 4/10 in L leg. Now pain is gone. Numbness persists. has incisional pain. has not done any exercises other than walking. Went to work yesterday. Walking a mile 5x/week. 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 Not allowed to lift but otherwise no limitations. [employer]. Basic ADLs are Ok but sock pn L foot is hard, afraid as it is hard to put leg up. Hobbies: gardening, missed it this year. Reading/cook are Ok. Regular exercises: no Pain l leg: Pain Intensity (Out of 10): Unrated Comment: tightness. Objective Objective: Walks without difficulty into PT area, no pain, stiff feeling in L leg posteriorly.. Trasnfers bed and chair I, slow and cautious on bed trasnfers. steps reciprocal with one rail catching L toe on step one time. reflexes 2/3 patella and achilles B sensation diminished L5 L, normal R. Incision is dry and healed no excessive redness or swelling. strength is 4- L hip abd, flexion hip, and knee ext and DF, 4/5 HS and other ankle motions. - slump but tightness much more so on L posterio LE than R as well as in piriformis sitting to put sock on L. LB AROM ext mod limtied, SB min limited, flexion limited due to pain in L post leg with FW bending. Balance/Special Test Scores Functional Gait Assessment Score: 29 % Disability: 3.3400 Oswestry Low Back Score: 14 Goals Goal 1:: Full lumbar AROM without pain and touch L toe in sitting without tightness Goal Time Frame: 4-6 Weeks Goal 2:: Put on L sock without hesitation L Goal Time Frame: 4-6 Weeks Goal 3:: patient feel 90% back to normal activity and mobility Goal Time Frame: 4-6 Weeks Goal 4:: oswestry score 4 or less Goal Time Frame: 4-6 Weeks Goal 5:: I appropriate HEP to minimize future problems Goal Time Frame: 4-6 Weeks Rehabilitation Potential Physical Therapy Diagnosis: weakness and tightness s/p l back surgery. Rehabilitation Potential: Good Anticipated Interventions Patient/Client Instruction: Educate patient on: Condition and Plan of Care For the Purpose of:: To increase ROM, To improve nutrient delivery to tissue, To increase oxygenation perfusion, To increase tolerance to activit y/condition/position, To improve ability of physical actions for home/community/work/leisure and To improve gait and locomotor functions Therapeutic Exercise to Include: Strength training, Postural training, Flexibilty training, Gait and locomotor training, Passive ROM and Active ROM For the Purpose of:: To increase ROM, To improve nutrient delivery to tissue, To improve muscle performance and motor function, To increase tolerance to activity/condition/position, To improve ability of physical actions for home/community/work/leisure and To improve gait and locomotor functions Manual Therapy Techniques to Include: Scar massage and Soft tissue mobilization For the Purpose of:: To increase ROM Text: Thank you for the opportunity to evaluate your patient. For Medicare and Medicare HMO plans, please review the plan of care and approve it. It will need to be FAXED BACK to us at [phone] for Medicare purposes. For Medicare only, by signing this I certify the plan of care. Please let me know if there are questions or concerns regarding this plan of care. Physician Signature: Date:
--- NOTE | 2023-09-03 09:11 | HP.PTDCSUM ---
Discharge Summary D/C summary: It has been my pleasure to treat CHELSEA STOUT referred by GRETA BOND, with the diagnosis of Lumbar disc herniation for a total of 17 visit(s). Discharge Date: 09/03/23 Please see the following information for a summary of their discharge status. Subjective Subjective: Doing well. Mopping can hurt but transient. No No pain. Sleeping well. Only avoiding lifting chairs and heavier at times. Work is not a problem. Pain l leg: Pain Intensity (Out of 10): 0 Overall Improvement % Improvement: 100 Objective Objective/Function: Full ROM with only slight back stretching end range of flexion. Walks normal, steps normal Goals Goal 1:: Full lumbar AROM without pain and touch L toe in sitting without tightness Goal Progress: Goal Met Goal 2:: Put on L sock without hesitation L Goal Progress: Goal Met Goal 3:: patient feel 90% back to normal activity and mobility Goal Progress: Goal Met Goal 4:: oswestry score 4 or less Goal Progress: Goal Met Goal 5:: I appropriate HEP to minimize future problems Goal Progress: Goal Met Plan Plan: d/c D/C Information d/c sentence: If there are questions or concerns regarding this patient's physical therapy, please feel free to call me at [phone]. Thank you for the referral of this patient. Sincerely, Ridge Montes De Oca, DPT, OCS, CSCS Balance/Gait/Functional tests Balance/Special Test Scores Functional Gait Assessment Score: 29 % Disability: 3.3400 Oswestry Low Back Score: 1 Improvement % Improvement: 100
== END 2023-09-03 19:00 | disposition home or self-care (01) ==
LOC: PT 09:00
PROVIDERS: PCP Family Medicine
DX: M51.26 Other intervertebral disc displacement, lumbar region (principal)
CPT/HCPCS: 97110; 97161; 97164; 97530

== ENCOUNTER → 2023-09-07 | Outpatient (CLI) | payer OTHER, SELFPAY ==
[2023-09-07 10:42] LABS: ALB/GLOB Ratio 0.9 RATIO (0.9-2.4); AST(SGOT) 28 U/L (15-37); Alanine Aminotransfer ALT/SGPT 62 U/L (13-56); Albumin, Serum 3.6 g/dL (3.2-5.0); Alkaline Phosphatase 109 U/L (45-117); Anion Gap 3 (5-15); BUN 14 mg/dL (7-18); BUN/Creat Ratio 16.4 RATIO (10-20); Calcium,Total 9.4 mg/dL (8.5-10.1); Chloride 106 mmol/L (98-107); Creatinine, Serum 0.86 mg/dL (0.55-1.02); EST Glomerular Filtration Rate 75 mL/min (>60); Est Glom Filt Rate - Afr Amer 91 mL/min (>60); Estradiol 24.1 pg/mL; Globulin 4.1 g/dL (2.2-4.2); Glucose 74 mg/dL (74-106); Luteinizing Hormone 41.8 mIU/mL; Potassium 3.8 mmol/L (3.5-5.1); Protein, Total 7.7 g/dL (6.4-8.2); Sodium Level 138 mmol/L (136-145); Thyroid Stim Hormone (TSH) 0.76 uIU/mL (0.358-3.74)
== END | disposition home or self-care (01) ==
LOC: LAB 09:33
PROVIDERS: PCP Family Medicine; Referring Provider Internal Medicine Endocrinology, Diabetes & Metabolism; Visit Provider Internal Medicine Endocrinology, Diabetes & Metabolism
DX: E89.0 Postprocedural hypothyroidism (principal)
CPT/HCPCS: 36415; 80053; 82670; 83001; 83002; 84443

== ENCOUNTER → 2023-12-14 | Outpatient (CLI) | payer OTHER, SELFPAY ==
[2023-12-14 15:44] LABS: Thyroid Stim Hormone (TSH) 1.55 uIU/mL (0.358-3.74)
== END | disposition home or self-care (01) ==
LOC: LAB 13:38
PROVIDERS: PCP Family Medicine
DX: E89.0 Postprocedural hypothyroidism (principal)
CPT/HCPCS: 36415; 84443

== ENCOUNTER → 2023-12-17 | Outpatient (CLI) | payer OTHER, SELFPAY ==
[2023-12-23 11:09] LABS: Age Gdln ACOG Testing 30-65 (.); HPV APTIMA, High Risk Negative (Negative)
[2023-12-24 16:52] LABS: HPV Reflexed? YES, CHARGE PATIENT
== END | disposition home or self-care (01) ==
LOC: BFHLAB 16:08 → LABSPEC 16:09
PROVIDERS: PCP Family Medicine; Visit Provider Family Medicine
DX: Z12.4 Encounter for screening for malignant neoplasm of cervix (principal)
CPT/HCPCS: 87624; 88175; G0145

== ENCOUNTER → 2024-01-26 | Outpatient (CLI) | payer OTHER, SELFPAY ==
--- NOTE | 2024-01-26 15:40 | RAD_ITS ---
STUDY: X-RAY CHEST REASON FOR EXAM: Female, 49 years old. COUGH/RULE OUT PNEUMONIA TECHNIQUE: PA and lateral views of the chest. COMPARISON: None. FINDINGS: Linear opacity in the upper left lung consistent with left upper lobe pneumonia or discoid atelectasis. There is no demonstrated pleural abnormality. Normal size heart. Normal mediastinum and harish. Normal visualized pulmonary arteries. Normal visualized aortic arch and descending thoracic aorta. Normal visualized thoracic spine. Normal visualized ribs, clavicles, and shoulders. There is no demonstrated abnormality of the visualized soft tissue structures of the upper abdomen. RAD/Chest PA and Lateral IMPRESSION: Left upper lobe pneumonia or discoid atelectasis. Electronically Signed: Elvis Ahn MD at 19:28 EDT ,
== END | disposition home or self-care (01) ==
PROVIDERS: PCP Family Medicine; Referring Provider Nurse Practitioner Family; Visit Provider Nurse Practitioner Family
DX: R05.9 Cough, unspecified (principal)
CPT/HCPCS: 71046

== ENCOUNTER → 2024-02-17 | Outpatient (CLI) | payer OTHER, SELFPAY ==
[2024-02-17 09:29] LABS: Vitamin D,25 Hydroxy 21.7 ng/mL
[2024-02-17 09:51] LABS: ALB/GLOB Ratio 0.8 RATIO (0.9-2.4); AST(SGOT) 32 U/L (15-37); Alanine Aminotransfer ALT/SGPT 40 U/L (13-56); Albumin, Serum 3.2 g/dL (3.2-5.0); Alkaline Phosphatase 94 U/L (45-117); Anion Gap 6 (5-15); BUN 14 mg/dL (7-18); BUN/Creat Ratio 15.6 RATIO (10-20); Calcium,Total 8.6 mg/dL (8.5-10.1); Chloride 106 mmol/L (98-107); EST Glomerular Filtration Rate 71 mL/min (>60); Est Glom Filt Rate - Afr Amer 86 mL/min (>60); Glucose 94 mg/dL (74-106); Magnesium 2.1 mg/dL (1.6-2.6); Potassium 3.8 mmol/L (3.5-5.1); Protein, Total 7.2 g/dL (6.4-8.2); Sodium Level 136 mmol/L (136-145); Thyroid Stim Hormone (TSH) 1.41 uIU/mL (0.358-3.74)
== END | disposition home or self-care (01) ==
PROVIDERS: PCP Family Medicine; Visit Provider Internal Medicine Endocrinology, Diabetes & Metabolism
DX: E89.0 Postprocedural hypothyroidism (principal); E61.2 Magnesium deficiency; E55.9 Vitamin D deficiency, unspecified
CPT/HCPCS: 36415; 80053; 82306; 83735; 84443

== ENCOUNTER → 2024-03-02 | Outpatient (CLI) | payer OTHER, SELFPAY ==
[2024-03-02 16:04] LABS: ALB/GLOB Ratio 0.9 RATIO (0.9-2.4); AST(SGOT) 28 U/L (15-37); Alanine Aminotransfer ALT/SGPT 31 U/L (13-56); Albumin, Serum 3.6 g/dL (3.2-5.0); Alkaline Phosphatase 104 U/L (45-117); Anion Gap 6 (5-15); BUN 21 mg/dL (7-18); BUN/Creat Ratio 24.7 RATIO (10-20); Chloride 103 mmol/L (98-107); Creatinine, Serum 0.85 mg/dL (0.55-1.02); EST Glomerular Filtration Rate 76 mL/min (>60); Est Glom Filt Rate - Afr Amer 91 mL/min (>60); Globulin 3.9 g/dL (2.2-4.2); Glucose 91 mg/dL (74-106); Potassium 3.9 mmol/L (3.5-5.1); Protein, Total 7.5 g/dL (6.4-8.2); Sodium Level 135 mmol/L (136-145)
== END | disposition home or self-care (01) ==
LOC: BIMLAB 13:17
PROVIDERS: PCP Family Medicine; Referring Provider Internal Medicine Endocrinology, Diabetes & Metabolism; Visit Provider Family Medicine
DX: E89.0 Postprocedural hypothyroidism (principal)
CPT/HCPCS: 36415; 80053

== ENCOUNTER → 2024-03-06 | Outpatient (CLI) | payer OTHER, SELFPAY ==
--- NOTE | 2024-03-06 15:16 | US_ITS ---
STUDY: ULTRASOUND OF THE FEMALE PELVIS - COMPLETE REASON FOR EXAM: Female, 49 years old. Postmenopausal bleeding LMP: Patient is postmenopausal. TECHNIQUE: Transabdominal and Transvaginal TECHNICAL QUALITY: Adequate. COMPARISON: None. FINDINGS: The uterus is anteverted and is in a midline position. The uterus measures 10.9 cm x 5.8 cm x 4.1 cm. Heterogeneous appearance of the cervix with evidence of multiple nabothian cysts. The endometrium is thickened and measures 14.6 mm in thickness, and is heterogeneous (striated). There is no demonstrated endometrial mass. Multiple fibroids are seen. The largest measures 2.5 cm x 2.4 cm x 2.5 cm. I.U.D. - The patient does not have an I.U.D. The right ovary is visualized. The right ovary measures 2.2 cm x 1.5 cm x 1.1 cm. There is no right ovarian cyst or ovarian mass. There is no visualized right adnexal mass or complex lesion. There is normal arterial and normal venous vascularity. The left ovary is visualized. The left ovary measures 3.6 cm x 3.2 cm x 2.5 cm. There is evidence of a simple left ovarian cyst measuring 3.1 cm x 2.6 cm x 1.8 centimeter. There is no visualized left adnexal mass or complex lesion. There is normal arterial and normal venous vascularity. There is no fluid in the cul-de-sac. The pre void volume of the bladder was 434 ml. US/Pelvic w/ Transvaginal IMPRESSION: Enlarged fibroid uterus with thickening of the endometrium. Simple cyst in the left ovary. Electronically Signed: Matias Smith MD at 12:10 EDT ,
== END | disposition home or self-care (01) ==
PROVIDERS: PCP Family Medicine; Referring Provider Nurse Practitioner Family; Visit Provider Nurse Practitioner Family
DX: N95.0 Postmenopausal bleeding (principal)
CPT/HCPCS: 76830; 76856

== ENCOUNTER → 2024-03-20 | Outpatient (CLI) | payer OTHER, SELFPAY ==
[2024-03-20 13:04] LABS: Cholesterol 180 mg/dL (200); High Density Lipoprotein 63 mg/dL; Triglycerides 69 mg/dL; Very Low Density Lipoprotein 14 mg/dL (5-40)
== END | disposition home or self-care (01) ==
LOC: BFHLAB 10:36
PROVIDERS: PCP Family Medicine; Referring Provider Family Medicine; Visit Provider Family Medicine
DX: Z00.00 Encounter for general adult medical examination without abnormal findings (principal)
CPT/HCPCS: 36415; 80061

== ENCOUNTER → 2024-03-27 | Outpatient (CLI) | payer OTHER, SELFPAY ==
--- NOTE | 2024-03-27 12:42 | BI_ITS ---
MAMMOGRAPHY - BILATERAL SCREENING REASON FOR EXAM: Female, 49 years old. Routine annual screening examination. PERTINENT HISTORY: Non-contributory. TECHNIQUE: Digital bilateral breast vanessa (3D mammographic acquisition) in the CC and MLO projections. 2-D mediolateral oblique (MLO) and craniocaudad (CC) views of both breasts were obtained. CAD: Full Field Digital Mammography with Computer Added Detection was performed. COMPARISON: Comparison is made with prior study of November 10, 2018 and March 05, 2016. FINDINGS: Breast Composition: The breasts are almost entirely fatty. There are no dominant masses or suspicious calcifications. No other significant abnormalities are identified. There has been no significant change since the prior study. BI/SCRN MAMM (CAD)W/VANESSA BILAT IMPRESSION: Stable bilateral screening mammogram. Yearly follow-up mammogram recommended. (A) ASSESSMENT CATEGORY: BIRADS Category 1: Negative. A letter regarding these results will be sent to the patient by the facility within 30 days. Approximately 10% of breast cancers are not detected by mammography. A normal mammogram should not delay biopsy of a clinically suspicious abnormality. [id number] Electronically Signed: Matias Smith MD at 13:21 EDT ,
== END | disposition home or self-care (01) ==
LOC: OPBI 12:41
PROVIDERS: PCP Family Medicine; Referring Provider Family Medicine; Visit Provider Family Medicine
DX: Z12.31 Encounter for screening mammogram for malignant neoplasm of breast (principal)
CPT/HCPCS: 77063; 77067

== ENCOUNTER → 2024-03-29 | Outpatient (CLI) | payer OTHER, SELFPAY ==
--- NOTE | 2024-03-29 11:30 | EMB_PTH ---
PATIENT: CHELSEA TSOUT LOC: [facility]#:[id number] AGE/SX: 49/F ROOM: RE03/29/[address]: SPEEDY Renner : 1975 BED: DIS: 03/29/2024 SPEC #: [id number] RECD: 03/30/24 06:46 STATUS: MARIE REQ #: [id number] MAGDA: 03/29/24 11:[address]: Olga Lidia Paula NP DEPT: SURGICAL PATHOLOGY RECD BY: Marie Aguilar ENTERED: 03/30/24 06:46 SP TYPE: ENDOM BX/C SAM DR: Dr. Pramod Ford DO Tissues: Endometrium, NOS Procedures: Surgery Specimen Level IV HEADER OPERATION: Endometrial biopsy PRE-OP DIAGNOSIS: Abnormal uterine bleeding TISSUE SUBMITTED: Endometrial lining MICROSCOPIC DIAGNOSIS Endometrium, biopsy: Transition endometrium with glandular and stromal breakdown. AM/mr 03/31/2024 MICROSCOPIC DESCRIPTION Slides are reviewed. GROSS DESCRIPTION Received is one container labeled with the patient's name and not further designated. The specimen consists of multiple fragments of hemorrhagic soft tissue measuring in aggregate 3.0 x 2.5 x 0.3cm. The entire specimen is submitted in one cassette. JUANCHO/ 03/30/2024 TC:5 CPT:80259
[2024-03-29 11:58] LABS: Absolute Lymphocyte Count 1.69 X10^3/uL (0.83-4.51); Absolute Neutrophil Count 3.6 X10^3/uL (2.0-7.7); Basophil# 0.04 X10^3/uL; Basophil% 0.7 % (0-1); Eosinophil# 0.12 X10^3/uL; Hematocrit 37.3 % (37-47); Lymphocyte # 1.69 X10^3/ul (0.83-4.51); Lymphocyte % 28.4 % (19-41); Mean Corp Hgb Conc 32.2 g/dL (32-36); Mean Corpuscular Hgb 28.8 pg (27.0-32.0); Mean Corpuscular Volume 89.4 fL (81-99); Mean Platelet Vol. 8.8 fl (6.2-12.0); Monocyte# 0.52 X10^3/uL; Monocyte% 8.7 % (0-10); NRBC Flagged by Analyzer 0 % (0-5); Neutrophil # 3.57 X10^3/uL (2.7-7.7); Platelet Count 254 K/mm3 (150-450); RBC Distribution Width CV 13.7 % (11.6-14.6); RBC Distribution Width SD 44.7 fl (35.1-43.9); Red Blood Count 4.17 M/mm3 (4.2-5.4)
== END | disposition home or self-care (01) ==
PROVIDERS: PCP Family Medicine; Referring Provider Nurse Practitioner Women's Health; Visit Provider Nurse Practitioner Women's Health
DX: N93.9 Abnormal uterine and vaginal bleeding, unspecified (principal); N95.0 Postmenopausal bleeding
CPT/HCPCS: 36415; 85025; 88305

== ENCOUNTER 2024-04-18 13:26 | Day surgery (SDC) | payer OTHER, SELFPAY ==
[2024-04-18] VITALS (8 sets, daily range): BP systolic 128–145; BP diastolic 56–86; PULSE 64–82; RESP 14–16; TEMP 36.3–37.3; O2SAT 97–100; BMI 33.9
--- NOTE | 2024-04-18 06:13 | PCM.HP.BLA ---
History and Physical Date of Admission: 04/18/24 Vital Signs 03/29/2411:00 04/17/2410:00 04/17/2410:01 Height 5 ft 7 in 5 ft 7 in 5 ft 7 in Weight: 228 lb 2 oz 223 lb BMI 35.7 34.9 BP 123/84 H 146/90 H Intake Visit Reasons: D&C with Symphion Chief Complaint: AUB Tissue Inserter Required: No Is patient in pain?: No Allergies No Known Allergies Allergy (Verified 04/17/24 10:00) Medications ?Medication ?Instructions ?Recorded ?Confirmed ?Type hydrochlorothiazide 25 mg tablet 25 mg PO DAILY 03/29/24 04/17/24 History levothyroxine 125 mcg capsule 125 mcg PO DAILY 03/29/24 04/17/24 History lisinopril 10 mg tablet 10 mg PO DAILY 03/29/24 04/17/24 History sertraline 25 mg tablet 25 mg PO DAILY 03/29/24 04/17/24 History norethindrone acetate 5 mg tablet 5 mg PO .COMPLEX #60 tabs 04/03/24 04/17/24 Rx (Aygestin) loratadine 10 mg tablet 10 mg PO DAILY 04/12/24 04/17/24 History (Allerclear) Is last menstrual period known: No Post menopausal: No Patient : No : No [facility] Medical History (Updated 04/18/24 @ 06:[address] 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 US shows fibroids and thickened lining. She was a referral from [facility] for postmenopausal bleeding. States no menses >1 year. Had bleeding February 18 and then again start 03/26 and is heavier today, changing pad every 3 hours. States had pap in December 2023 but unsatisfactory and not repeated. US confirms lining of 14mm, multiple fibroids with largest 2.5cm. Uterus is 10cm. States menses prior to 2022 were regular, not heavy and lasted 5 days. 10.9 cm x 5.8 cm x 4.1 cm. Heterogeneous appearance of the cervix with evidence of multiple nabothian cysts. The endometrium is thickened and measures 14.6 mm in thickness, and is heterogeneous (striated). There is no demonstrated endometrial mass. Multiple fibroids are seen. The largest measures 2.5 cm x 2.4 cm x 2.5 cm. History 4 Elective abortions Hx Para 3 Spontaneous abortions Hx # Term Pregnancies Ectopic pregnancies Hx # Pregnancies Multiple births # of living children 3 ROS Const Constitutional: Reports system reviewed and no additional complaints, except as documented Eyes Eyes: Reports system reviewed and no additional complaints, except as documented ENT ENT: Reports system reviewed and no additional complaints, except as documented Cardio Card: Denies chest pain Resp Resp: Denies cough or dyspnea GI GI: Denies abdominal pain or change in bowel habits : Reports as per HPI; Denies nipple discharge Musc Musc: Denies arthralgias, back pain or muscle weakness Skin Skin/Breast: Denies alopecia, change in hair, dry skin, breast mass, breast pain, breast skin changes or nipple discharge Neuro Neuro: Reports system reviewed and no additional complaints, except as documented Psych Psych: Reports system reviewed and no additional complaints, except as documented Endo Endo: Denies cold intolerance, excessive sweating, heat intolerance or polydipsia Spike/Lymph Hematologic/Lymphatic: Denies easy bleeding, Denies easy bruising and Denies lymphadenopathy Exam Const General: cooperative and no acute distress Orientation: oriented x3 HENMT Head: normal to inspection and normocephalic Ears: hearing grossly normal bilaterally and external ears normal Nose: external nose normal and nares normal Face and sinus: normal facial exam Neck Neck: normal visual inspection Chest Chest palpation & inspection: normal inspection of the chest Resp Effort & Inspection: normal respiratory effort GI Inspection: normal to inspection and non-distended Palpation: soft and no hepatosplenomegaly Musc Other: gross motor intact no deficits, full bilateral strength Skin General: no rashes or lesions noted Neuro General: patient alert, patient awake, moves all extremities and no focal motor deficits Motor: muscle tone normal throughout Extrem General: normal to inspection and no pedal edema Psych Appearance: grossly normal Mental Status: mental status grossly normal Affect: normal affect Speech and Movement: speech and movement normal Coding Level of Care Code Off vis,est,level 4 Diagnoses Postmenopausal bleeding N95.0 Unsatisfactory cervical Papanicolaou smear R87.615 Thickened endometrium R93.89 Uterine leiomyoma, unspecified location D25.9 Uterine leiomyoma location: unspecified location Assessment and Plan Assessment and Plan (1) Postmenopausal bleeding: Status: Acute Comment: normal EMB, plan d and c hysteroscopy symphion. repeat pap. (2) Unsatisfactory cervical Papanicolaou smear: Status: Acute Comment: needs repeat; bleeding to heavy at EMB (3) Thickened endometrium: Status: Acute Comment: 14mm (4) Uterine fibroid: Status: Acute Qualifiers: Uterine leiomyoma location: unspecified location Qualified Code(s): D25.9 - Leiomyoma of uterus, unspecified Comment: multiple. up to 2.5cm Orders: Orders Pelvic (Non ) 04/17/24 N83.209 - Unspecified ovarian cyst, unspecified side Pelvic w/ Transvaginal 04/17/24 N83.209 - Unspecified ovarian cyst, unspecified side Plan After discussing the patient's diagnosis and treatment plan options, patient wishes to proceed with surgical management. I have discussed with the patient the risks, benefits, and alternatives of the procedure which include but are not limited to risks of anesthesia, bleeding, infection, possible damage to bowel, bladder, or surrounding vasculature which could lead to additional surgery to evaluate any complications. Patient agrees to procedure and wishes to proceed. ACOG/uptodate references given for additional information regarding procedure.
[2024-04-18] MEDS: Lactated Ringers 1,000 ML 15 ML IV (13:58)
[2024-04-18 14:12] LABS: Internal QC Validated? YES +Cl - CLEAR BKGD; Pregnancy, Urine Negative Negative
--- NOTE | 2024-04-18 14:52 | PRE.ANES_ITS ---
ASA Classification* ASA Classification ASA Classification: 2 Assessment & Plan Anesthesia* Anesthesia Assessment Anesthesia Assessment: Discussed sedation and/or anesthesia options, risks, benefits, and alternatives with patient/parents/legal guardian/POA. Questions invited. The patient/parents/legal guardian/POA seems to understand and agrees to proceed with anesthesia plan. Reviewed the physical assessment, medical history, allergy history and patient home medications list prior to surgery/procedure/anesthetic and documented any changes. Performed airway and anesthesia risk assessments. Anesthesia Type Anesthesia Type: MAC History Source History Obtained from:: Patient and Chart Anesthesia Focused Assessment* Temperature: 99.2 F Pulse Rate: 82 Blood Pressure: 145/56 Respiratory Rate: 16 Pulse Ox: 100 Oxygen Delivery Method: Room Air Airway Assessment Mouth opens: >3 cm Mallampati Score: III Teeth Condition: Caps/Crowns (Tooth #9 has a cap. Left lower molar is crowned. tight) Neck Range of motion (ROM): Full ROM Focused Labs Anesthesia Preop lab: CBC WBC 6.0 K/mm3 (4.4-11.0) 03/29/24 11:50 RBC 4.17 M/mm3 (4.2-5.4) L 03/29/24 11:50 Hgb 12.0 g/dL (12.0-15.0) 03/29/24 11:50 Hct 37.3 % (37-47) 03/29/24 11:50 Plt Count 254 K/mm3 (150-450) 03/29/24 11:50 CHEMISTRY Potassium 3.9 mmol/L (3.5-5.1) 03/02/24 13:19 Sodium 135 mmol/L (136-145) L 03/02/24 13:19 Magnesium 2.1 mg/dL (1.6-2.6) 02/17/24 07:48 BUN 21 mg/dL (7-18) H 03/02/24 13:19 Creatinine 0.85 mg/dL (0.55-1.02) 03/02/24 13:19 Glucose 91 mg/dL (74-106) 03/02/24 13:19 TSH 1.41 uIU/mL (0.358-3.74) 02/17/24 07:48 COAG PT 13.4 SECONDS (11.9-14.4) 11/10/12 12:51 Urine Test Negative Negative 04/18/24 13:55 Tst Clinic Negative 03/29/24 11:17 Pre-Assessment Diagnosis/Proposed Procedure Planned Operative Procedure(s): Hysteroscopy,D&C Symphion Anesthesia History 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 When Was Last Pacemaker Check QUESTION #4 FULL TEXT: You/Your Family Experience fever (hyperthermia) with Anesthesia Last Oral Intake Last Oral intake: Last Oral Intake NPO since 11:00 04/18/24 13:52 Meds taken in AM with sips of Yes 04/18/24 13:52 water? Meds patient instructed to see medlist 04/18/24 13:52 take am of surgery Any additional information?: Yes NPO since: 11:00 (Patient had water in 11:00.) PONV PONV - construction engineer: PONV - construction engineer Female Yes 04/12/24 10:30 HX of Motion Sickness Yes 04/12/24 10:30 HX of N/V After Surgery Yes 04/12/24 10:30 Non-Smoker Yes 04/12/24 10:30 Duration of Surgery greater No 04/12/24 10:30 than 60 minutes Number of Risk Factors 4 04/12/24 10:30 PONV Score Severe Risk 04/12/24 10:30 Height & Weight Height & Weight: Anesthesia: Height & Weight Height 5 ft 8 in 04/18/24 13:52 Weight: 101.3 kg 04/18/24 13:52 Body Mass Index (BMI) 33.9 04/18/24 13:52 Respiratory Assessment Respiratory Assessment - construction engineer: Respiratory Tract Infection Hx - construction engineer Hx Respiratory Tract Infection No 04/12/24 10:30 STOP Sleep Apnea STOP Sleep Apnea - construction engineer: STOP Sleep Apnea - construction engineer Hx Hypertension Yes: CONTROLLED WITH MED 04/12/24 10:30 Hx Sleep Apnea No 04/12/24 10:30 CPAP BIPAP Do you snore loudly (louder No 04/12/24 10:30 than talking or can be heard Do you often feel tired/ No 04/12/24 10:30 fatigued/ sleepy during daytime? Has anyone observed you stop No 04/12/24 10:30 breathing during sleep? STOP Results Negative 04/12/24 10:30 QUESTION #5 FULL TEXT : Do you snore loudly (louder than talking or can be heard through closed doors)? 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 Specify any problems Hx of Preganancy in last 3 N/A 04/12/24 10:30 Months Nurse Filling Out Transfusion NBUCHER 04/12/24 10:30 & Questions: Date: 04/12/24 04/12/24 10:30 Time: 10:32 04/12/24 10:30 Patient unable to answer at this time (ie. confused, unrespo /Reproduction History /Reproductive History - construction engineer: /Reproductive Hx- construction engineer Hx Now No 04/12/24 10:30 Gestational Age (in weeks): EDC: Hx Hx Para Hx Section SAB No 04/17/24 10:01 Active Medications Active Medications: Current Medications Generic Name Dose Route Start Last Admin Trade Name Freq PRN Reason Stop Dose Admin Lactated Ringer's 1,000 mls @ 15 mls/hr 04/18/24 13:45 04/18/24 13:58 IV 15 mls/hr .Q48H MANISHA Administration PFSH Medical History Hypertension PONV (postoperative nausea and vomiting) Thyroid disease Migraine headache Non-smoker Leg cramps History of edema Cellulitis of trunk, unspecified Home Medications ?Medication ?Instructions ?Recorded ?Last Taken ?Type hydrochlorothiazide 25 mg tablet 25 mg PO DAILY 03/29/24 04/18/24 History levothyroxine 125 mcg capsule 125 mcg PO DAILY 03/29/24 04/18/24 History lisinopril 10 mg tablet 10 mg PO DAILY 03/29/24 04/18/24 History sertraline 25 mg tablet 25 mg PO DAILY 03/29/24 04/18/24 History norethindrone acetate 5 mg tablet 5 mg PO .COMPLEX #60 tabs 04/03/24 04/18/24 Rx (Aygestin) loratadine 10 mg tablet 10 mg PO DAILY 04/12/24 04/18/24 History (Allerclear) Allergy/AdvReac Type Severity Reaction Status Date / Time No Known Allergies Allergy Verified 04/18/24 13:50 Surgical History S/P History of back surgery S/P thyroidectomy Social History household members: spouse current occupational status: employed 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
--- NOTE | 2024-04-18 15:00 | EMB_PTH ---
PATIENT: CHELSEA STOUT LOC: [facility] [place] U#:[id number] AGE/SX: 49/F ROOM: RE04/18/[address]: Dr. Gabbie Walker MD : 1975 BED: DIS: 04/18/2024 SPEC #: [id number] RECD: 04/18/24 17:09 STATUS: MARIE RESaman #: [id number] MAGDA: 04/18/24 15:[address]: Gabbei Walker DEPT: SURGICAL PATHOLOGY RECD BY: Marie Aguilar ENTERED: 04/19/24 07:08 SP TYPE: ENDOM BX/C OTHR DR: Dr. Pramod Ford, DO Tissues: Endometrium, NOS Procedures: Surgery Specimen Level IV HEADER OPERATION: Hysteroscopy, D&C, polypectomy PRE-OP DIAGNOSIS: Postmenopausal bleeding, unsatisfactory cervical Papanicolaou smear, thickened endometrium TISSUE SUBMITTED: Endometrial curettings and polyp MICROSCOPIC DIAGNOSIS Endometrium biopsy and polyp: Polypoid fragments of the secretory endometrium. Fragments of benign myometrial tissue. AM/mr 04/20/2024 COMMENT Case has been reviewed in consultation with Dr. Russo who concurs with the above diagnosis. IDC:SJ MICROSCOPIC DESCRIPTION Slides are reviewed. GROSS DESCRIPTION Received in fixative is one container labeled with the patient's name and designated Endometrial curettings and polyp. The specimen consists of multiple irregular fragments of kolb soft tissue that in aggregate measure 5.0 x 3.5 x 0.8 cm. The specimen is totally submitted in five cassettes. JUANCHO/ 04/19/2024 TC:5 CPT:02468
--- NOTE | 2024-04-18 16:15 | OP.PCM_ITS ---
Problems Associated Problem List Diagnoses (1) Uterine fibroid: (2) Postmenopausal bleeding: (3) Unsatisfactory cervical Papanicolaou smear: (4) Thickened endometrium: Report of Operation Date of Procedure: 04/18/24 Pre-Operative Diagnosis: see problem list Post-Operative Diagnosis: same Surgery/Procedure Performed:: D&C hysteroscopy polypectomy using symphion Description of Surgical Findings:: thickened polypoid lining Surgeon: Gabbie Walker division roadmaster: None Type of Anesthesia: Local MAC Special Medications: none Specimen's removed: EMC, polyp Drains: none Estimated Blood Loss (mL): 25 Fluids Replaced: crystalloid Description of Procedure: Patient was prepped and draped in a normal sterile fashion under MAC anesthesia. A weighted speculum was placed in the vagina and the anterior lip of the cervix was grasped with a single-tooth tenaculum. A paracervical block was placed with 1% lidocaine. Cervix was progressively dilated to allow passage of a 5 mm hysteroscope. The lining was fully visualized and noted to have thickened polypoid linin, polyp right upper fundus . Uterine sounded to 8 cm. Using the symphion device, the polyps and abnormal lining was progressively removed without complications. Direct visual curettage was performed using the device , and all specimens were sent to pathology. All instruments were removed from the vagina and excellent hemostasis was noted. Patient was awoken and taken to recovery in stable condition. Grafts/Implants Used: none Complications none Admit VTE Documentation VTE Present on Admission: No VTE Mechan Device Prophylaxis: SCD's Multi Select Codes Urinary/Genital Urinary/Genital CPT Codes: 65888 Hysteroscopy,EMC, Polypectomy
--- NOTE | 2024-04-18 16:15 | DCINST_ITS ---
Discharge Instructions Diet Discharge Diet: No restrictions Activity Discharge Activity: Return to Normal Activity, May Shower and May Take a Tub Bath (after 1 week) May resume sexual activity in: 1-2 weeks Weight Bearing Status: Weight bearing as tolerated Lifting Restrictions: none Dressing / Incision Call your doctor if you observe: Fever of 101 or Higher, Using more than 1 pad per hour, Shortness of breath and Uncontrolled pain Follow Up Care Please Follow Up With: Gabbie Walker MD When: Call [phone] to schedule appointment. Test Results: Test results from this visit will be discussed in further detail at your follow- up appointment, if applicable. Discharge Plan Admission Attending Provider: Gabbie Walker Primary Care Provider: Pramod Ford Instructions Print Language: Panamanian Discharge Orders/Prescriptions Prescriptions: No Action sertraline 25 mg tablet 25 mg PO DAILY lisinopril 10 mg tablet 10 mg PO DAILY hydrochlorothiazide 25 mg tablet 25 mg PO DAILY levothyroxine 125 mcg capsule 125 mcg PO DAILY loratadine [Allerclear] 10 mg tablet 10 mg PO DAILY norethindrone acetate [Aygestin] 5 mg tablet 5 mg PO .COMPLEX Qty: 60 2RF Rx Instructions: 5 mg PO bid Referrals / Follow Up: Pramod Ford DO [Primary Care Provider] - Disposition Disposition (needs filled in before D/C Order can be placed): Home, Self Care
--- NOTE | 2024-04-18 16:51 | PCM.POST.ANE ---
Anesthesia: Postop Eval I Current Vital Signs Temperature: 98.2 F Pulse Rate: 72 Blood Pressure: 128/86 Respiratory Rate: 14 Pulse Ox: 99 Oxygen Delivery Method: Room Air Assessment Airway patent: Yes Spontaneous unlabored respirations: Yes Mental status: Awake and Calm nausea: No Vomiting: No Anesthesia Complication: No Fluid Hydration Crystalloid volume administer (ml): 800 Total IV fluid infused: 800 Progress Note Anesthesia document: Postop Eval 1 completed: Yes
[2024-04-18] MEDS: Lidocaine 1% (20 ml mdv) 20 ML Vial (16:59)
--- NOTE | 2024-04-18 17:07 | POSTOPAN2_ITS ---
Anesthesia Postop Eval I Sum Postop Eval Completion status Anesthesia document: Postop Eval 1 completed: Yes Anesthesia Postop Eval I Summary Anesthesia Postop Eval I Summary: Anesthesia Postop Eval I: Assessment Summary Airway patent Yes 04/18/24 16:52 SYSTEM CONTROLLER.[email or web address] Spontaneous unlabored Yes 04/18/24 16:52 SYSTEM CONTROLLER.[email or web address] respirations Mental status Awake,Calm 04/18/24 16:52 SYSTEM [email or web address].JBLOU nausea No 04/18/24 16:52 SYSTEM [email or web address].JBLOU Vomiting No 04/18/24 16:52 SYSTEM [email or web address].JBLOU Anesthesia Postop Eval I: Fluid Summary Crystalloid volume administer 800 04/18/24 16:52 SYSTEM CONTROLLER.JBLOU (ml) Colloids volume administered ( ml) Blood Product volume administered (ml) Total IV fluid infused 800 04/18/24 16:52 SYSTEM CONTROLLER.JBLOU Anesthesia Postop Eval I: Summary Notes Anesthesia Complication No 04/18/24 16:52 SYSTEM CONTROLLER.EDMOND Anesthesia Complication Comment: Post-operative progress note Anesthesia: Postop Eval II Evaluation Mental status: Awake and Calm Pain Level: 2 nausea: No Vomiting: No
--- NOTE | 2024-04-18 17:07 | PCM.POSTANE2 ---
Anesthesia Postop Eval I Sum Postop Eval Completion status Anesthesia document: Postop Eval 1 completed: Yes Anesthesia Postop Eval I Summary Anesthesia Postop Eval I Summary: Anesthesia Postop Eval I: Assessment Summary Airway patent Yes 04/18/24 16:52 USED EQUIPMENT SALES REPRESENTATIVE.ANGELALOU Spontaneous unlabored Yes 04/18/24 16:52 USED EQUIPMENT SALES REPRESENTATIVE.ANGELALOU respirations Mental status Awake,Calm 04/18/24 16:52 USED EQUIPMENT SALES REPRESENTATIVE.JBLOU nausea No 04/18/24 16:52 USED EQUIPMENT SALES REPRESENTATIVE.JBLOU Vomiting No 04/18/24 16:52 USED EQUIPMENT SALES REPRESENTATIVE.JBLOU Anesthesia Postop Eval I: Fluid Summary Crystalloid volume administer 800 04/18/24 16:52 USED EQUIPMENT SALES REPRESENTATIVE.JBLOU (ml) Colloids volume administered ( ml) Blood Product volume administered (ml) Total IV fluid infused 800 04/18/24 16:52 USED EQUIPMENT SALES REPRESENTATIVE.JBLOU Anesthesia Postop Eval I: Summary Notes Anesthesia Complication No 04/18/24 16:52 USED EQUIPMENT SALES REPRESENTATIVE.EDMOND Anesthesia Complication Comment: Post-operative progress note Anesthesia: Postop Eval II Evaluation Mental status: Awake and Calm Pain Level: 2 nausea: No Vomiting: No
[2024-04-18] MEDS: HYDROcodone Bitartrate/Apap 5/325 Tablet PO (17:32)
[2024-04-22 10:42] LABS: HPV APTIMA, High Risk Negative (Negative)
[2024-04-23 09:47] LABS: HPV Reflexed? YES, CHARGE PATIENT
== END 2024-04-18 17:41 | disposition home or self-care (01) ==
LOC: SDC 13:27 → AC 13:28
PROVIDERS: PCP Family Medicine; Referring Provider Obstetrics & Gynecology; Visit Provider Obstetrics & Gynecology
PROC: 0UB98ZZ Excision of Uterus, Via Natural or Artificial Opening Endoscopic (ICD-10-PCS; CPT 58558; principal; 2024-04-18 14:45)
DX: N95.0 Postmenopausal bleeding (principal); D25.9 Leiomyoma of uterus, unspecified; I10 Essential (primary) hypertension; E07.9 Disorder of thyroid, unspecified; Z79.899 Other long term (current) drug therapy
CPT/HCPCS: 58558; 00952; 81025; 86850; 86900; 86901; 87624; 88175; 88305; J7120; G0145; J2405

== ENCOUNTER → 2024-07-08 | Outpatient (CLI) | payer OTHER, SELFPAY ==
--- NOTE | 2024-07-08 10:28 | US_ITS ---
STUDY: ULTRASOUND OF THE FEMALE PELVIS - COMPLETE REASON FOR EXAM: Female, 49 years old. ovarian cyst TECHNIQUE: Transvaginal and transabdominal imaging. COMPARISON: 03/06/2024 FINDINGS: The uterus is anteverted and is in a midline position. The uterus measures 9.9 x 5.2 cm. There is a Nabothian cyst of the cervix. The endometrium measures 8 mm in thickness, and is hyperechoic. There is no demonstrated endometrial mass. Multiple uterine fibroids. These measure 20 mm, 27 mm, and 12 mm. Uterine echogenic focus measures 9 mm. This may be calcification. I.U.D. - The patient does not have an I.U.D. The right ovary is visualized. The right ovary measures 2.6 cm. There is no right ovarian cyst or ovarian mass. There is no visualized right adnexal mass or complex lesion. There is normal arterial and normal venous vascularity. The left ovary is visualized. The left ovary measures 2.7 cm. Left renal cyst measures 16 millimeters. This appears complex. There is no visualized left adnexal mass or complex lesion. There is normal arterial and normal venous vascularity. There is no fluid in the cul-de-sac. Urinary bladder volume is (in cc) 359. US/Pelvic w/ Transvaginal IMPRESSION: Fibroid uterus. Calcification in the uterus is likely related to fibroids. Possible hemorrhagic cyst of the left ovary. This is decreased in size. Nabothian cysts. Electronically Signed: Martir Gauthier MD at 16:04 EDT ,
--- OUTSIDE RECORDS SUMMARY | 2024-07-08 10:28 | XMS RPT_ITS | CCD ---
Author Organization [facility] Care Team Providers Care Central Office Supervisor Name Role Phone MAXI LALA Referring Unavailable EDWIN FORD Primary Care Unavailable MAXI LALA Admitting Unavailable MAXI LALA Attending Unavailable EDWIN FORD Primary Care Unavailable MAXI LALA Referring Unavailable EDWIN FORD Primary Care Unavailable Edwin Ford DO Primary Care Provider EDWIN FORD Primary Care Unavailable Medications Completed/Discontinued Medications Medication Drug Class(es) Dates Sig (Normalized) Sig (Original) calcium carbonate 600 mg / cholecalciferol 125 unt oral tablet (1 source) Vitamin D Start: 2 take 2 tablets by mouth twice daily Calcium-Cholecalcifero l, D3, (CALCIUM 600 + D) 600-125 mg-unit tab Take 2 tablets by mouth twice daily for 15 days. 60 tablet 0 06/09/2022 Active Comment on above: Take 2 tablets by [facility] twice daily for 15 days. cetirizine hydrochloride 10 mg oral capsule (1 source) Histamine-1 Receptor Antagonist Cetirizine (ZYRTEC) 10 mg cap Take by mouth once daily. 0 Active Comment on above: Take by mouth once d aily. hydroCHLOROthiazide 12.5 mg oral capsule (1 source) Thiazide Diuretic take 2 capsules by mouth once daily in the morning Hydrochlorothiazide 12.5 mg capsule Take 25 mg by mouth every morning. 0 Active Comment on above: Take 25 mg by mouth every morning. levothyroxine sodium 0.125 mg oral tablet (1 source) l-Thyroxine Start: 4 take 1 tablet by mouth once daily in the morning levothyroxine (SYNTHROID) 125 mcg tablet Take 125 mcg by mouth every morning. 0 10/29/2023 Active Comment on above: Take 125 mcg by mout h every morning. lisinopril 10 mg oral tablet (1 source) Angiotensin Converting Enzyme Inhibitor Start: take 1 tablet by mouth once lisinopril (ZESTRIL) 10 mg tablet Take 1 tablet by mouth every afternoon. 0 10/30/2023 Active Comment on above: Take 1 tablet by alistair th every afternoon. vit/iron fum/folic ac ( 1 + 1 ORAL) (1 source) vit/iro n fum/folic ac ( 1 + 1 ORAL) Take 1 tablet by mouth every morning. LD 04/09/22 0 Active Comment on above: Take 1 tablet by alistair th every morning. LD 04/09/22 SELENIUM ORAL (1 source) take 1 tablet by mouth once daily in the morning SELENIUM ORAL Take 1 tablet by mouth every morning. 04/09/22 0 Active Comment on above: Take 1 tablet by alistair th every morning. 04/09/22 sertraline 25 mg oral tablet (1 source) Serotonin Reuptake Inhibitor take 1 tablet by mouth once daily in the morning sertraline (ZOLOFT) 25 mg tablet Take 25 mg by mouth every morning. 0 Active Comment on above: Take 25 mg by mouth every morning. Problems Problem Classification Problem Date Documented Date Episodic/Chronic Essential hypertension (1 source) Hypertensive disorder; Translations: [Essential (primary) hypertension] 06-09-2022 Chronic Genitourinary symptoms and ill-defined conditions (1 source) Dysuria; Translations: [Dysuria] 11-25-2023 Episodic Other female genital disorders (1 source) Pruritus of vagina; Translations: [Other specified noninflammatory disorders of vagina] 11-25-2023 Episodic Other nervous system disorders (1 source) Other acute postprocedural pain; Translations: [Post-op pain] Onset: 06-08-2022 Episodic Other nutritional; endocrine; and metabolic disorders (1 source) Obese class I; Translations: [Obesity, unspecified] Onset: 06-08-2022 06-09-2022 Chronic Thyroid disorders (2 sources) Thyrotoxicosis with diffuse goiter without thyrotoxic crisis or storm; Translations: [Graves' disease] Onset: 06-09-2022 06-09-2022 Chronic Thyroid disorders (1 source) Disorder of thyroid gland; Translations: [Disorder of thyroid, unspecified] 06-09-2022 Episodic Unclassified (1 source) Encounter for screening for COVID-19; Translations: [Encounter for screening for COVID-19] Onset: 06-05-2022 Unclassified (1 source) Encounter for preoperative screening laboratory testing for COVID-19 virus; Translations: [Encounter for preoperative screening laboratory testing for COVID-19 virus] Onset: 04-17-2022 Results Test Name Value Interpretation Reference Range Facil ity BACTERIAL VAGINOSIS NAATon 0 11-25-2023 Lactobacillus crispatus+gasseri +jensenii + Gardnerella vaginalis + Atopobium vaginae rRNA JAYNA+probe Ql (Vag fld) Negative Normal Negative for bacterial vaginosis [facility] Comment on above: Order Comment: Speci men Type: SWAB Ordering Facility: [facility] Address: [address] [place] [address] Performed By: #### C VTV, BVAMP #### [facility] CLIA [id number] [address] [place] [address] [place] Bacteria Ur Culton Bacteria identified Cx Nom (U) ORGANISM ID: 1 50,000-<100,000 CFU/ml Normal urogenital lola Normal [facility] Comment on above: Performed By: #### 6 30-4 #### [facility] CLIA [id number] [address] [place] [address] [place] CANDE/TRICHOMONAS NAATon 0 11-25-2023 C. glabrata RNA JAYNA+probe Ql (Vag fld) Negative Normal Negative for Cande glabrata [facility] Comment on above: Order Comment: Speci men Type: SWAB Ordering Facility: [facility] Address: [address] [place] [address] Performed By: #### C VTV, BVAMP #### [facility] CLIA [id number] [address] [place] [address] [place] Cande sp DNA JAYNA+probe Ql (Vag fld) Negative Normal Negative for Cande species [facility] Comment on above: Order Comment: Speci men Type: SWAB Ordering Facility: [facility] Address: [address] [place] [address] Performed By: #### C VTV, BVAMP #### [facility] CLIA [id number] [address] [place] [address] [place] T. vaginalis DNA JAYNA+probe Ql (Unsp spec) Negative Normal Negative for Trichomonas vaginalis by amplification [facility] Comment on above: Order Comment: Speci men Type: SWAB Ordering Facility: [facility] Address: [address] [place] [address] Performed By: #### C VTV, BVAMP #### [facility] CLIA [id number] [address] [place] [address] [place] CNOVon 11-25-2023 CNOV Office Visit (UCWSTR ) JEANNE STOUT ([id number]) 1975 F Date Time Provider Department 11/25/23 7:30 PM CARRIE GARCIA [facility] During your visit today, we recorded the following information about you: Temperature Pulse Respiration Blood pressure 97 degrees 77/minute 20/minute 152/98 Weight 102 kg Carrie Garcia, SANDBLASTER SUPERVISOR.TERADATA ARCHITECT 11/25/2023 7:55 PM Signed Subjective Vaginal Problem Pertinent negatives include no abdominal pain, chills, fever, nausea or vomiting. Jeanne Stout is a 48 year old female who presents with vaginal itching for the past 2 weeks Dysuria for the past week. She has been using monistat for the past week. Denies concern for STD LMP over one year ago-post menopause Is currently sexually active. Denies any vaginal rash or sores. Review of Systems Constitutional: Negative for chills and fever. Respiratory: Negative. Cardiovascular: Negative. Gastrointestinal: Negative for abdominal pain, nausea and vomiting. Genitourinary: Positive for dysuria, frequency and vaginal discharge. Negative for flank pain, hematuria and urgency. Musculoskeletal: Negative for back pain. BP 152/98 Pulse 77 Temp 36.1 ?C (97 ?F) Resp 20 Wt 102 kg (224 lb 13.9 oz) LMP (LMP Unknown) SpO2 97% BMI 34.19 kg/m? 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 MEDICATIONS - levothyroxine (SYNTHROID) 125 mcg tablet Take 125 mcg by mouth every morning. - lisinopril (ZESTRIL) 10 mg tablet Take 1 tablet by mouth every afternoon. - Calcium-Cholecalciferol , D3, (CALCIUM 600 + D) 600-125 mg-unit tab Take 2 tablets by mouth twice daily for 15 days. - Cetirizine (ZYRTEC) 10 mg cap Take by mouth once daily. - sertraline (ZOLOFT) 25 mg tablet Take 25 mg by mouth every morning. - vit/iron fum/folic ac ( 1 + 1 ORAL) Take 1 tablet by mouth every morning. LD 04/09/22 - Hydrochlorothiazide 12.5 mg capsule Take 25 mg by mouth every morning. - SELENIUM ORAL Take 1 tablet by mouth every morning. LD 04/09/22 (Patient not taking: Reported on 11/25/2023) No family history on file. Social History Tobacco Use - Smoking status: Never - Smokeless tobacco: Never Substance Use Topics - Alcohol use: Yes Comment: social - Drug use: Never Objective Physical Exam Vitals and nursing note reviewed. Constitutional: General: She is not in acute distress. Appearance: Normal appearance. She is not ill-appearing. Cardiovascular: Rate and Rhythm: Normal rate and regular rhythm. Heart sounds: Normal heart sounds. Pulmonary: Effort: Pulmonary effort is normal. No respiratory distress. Breath sounds: Normal breath sounds. No wheezing or rales. Abdominal: General: There is no distension. Palpations: Abdomen is soft. There is no mass. Tenderness: There is no abdominal tenderness. There is no right CVA tenderness, left CVA tenderness or guarding. Genitourinary: Comments: Patient elected to self-swab Skin: General: Skin is warm and dry. Neurological: Mental Status: She is alert. ASSESSMENT/PLAN: 1. Dysuria - ICD9: 788.1, ICD10: R30.0 (primary diagnosis) acute - UA positive for hematuria-trace - Send urine for culture - UA DIP, URINE (POC) 2. Vaginal itching - ICD9: 698.1, ICD10: N89.8 - continue OTC monistat for now until test results are available. - CANDE/TRICHOMONAS NAAT - BACTERIAL VAGINOSIS NAAT - Follow-up with your PCP in 3-5 days if symptoms have not improved or sooner if symptoms worsen - Discussed red flags and need for immediate medical evaluation if any occur. - Discussed supportive care treatment with fluids, rest and analgesia. - Discussed expected course of illness TAVO Salazar Kathy, APRN.CNP 11/25/2023 7:54 PM Signed ASSESSMENT/PLAN: 1. Dysuria - ICD9: 788.1, ICD10: R30.0 (primary diagnosis) acute - UA positive for hematuria-trace - Send urine for culture - UA DIP, URINE (POC) 2. Vaginal itching - ICD9: 698.1, ICD10: N89.8 - continue OTC monistat for now until test results are available. - CANDE/TRICHOMONAS NAAT - BACTERIAL VAGINOSIS NAAT - Follow-up with your PCP in 3-5 days if symptoms have not improved or sooner if symptoms worsen - Discussed red flags and need for immediate medical evaluation if any occur. - Discussed supportive care treatment with fluids, rest and analgesia. - Discussed expected course of illness TAVO Salazar Kathy, APRN.CNP 11/25/2023 8:00 PM Signed Addended by: CARRIE GARCIA on: 11/25/2023 08:00 PM Modules accepted: Orders Allergi (more content not included)... Normal [facility] Jimenez UA DIP, URINE (POC)on 2023 BILIRUBIN UA (POCT) Negative Negative [facility] CLARITY UA (POCT) Clear [facility] COLOR UA (POCT) Yellow [facility] GLUCOSE UA (POCT) Negative Negative mg/dL [facility] Hemoglobin Ql (U) Trace-intact Abnormal Negative [facility] KETONE UA (POCT) Negative Negative mg/dL [facility] LEUKOCYTES UA (POCT) Negative Negative [facility] NITRITE UA (POCT) Negative Negative [facility] PH UA (POCT) 6.0 4.5 - 8.0 [facility] Protein Ql (U) Negative Negative mg/dL [facility] SPECIFIC GRAVITY UA (POCT) >=1.030 1.005 - 1.030 [facility] UROBILINOGEN UA (POCT) 1.0 E.U./dL Normal E.U./dL [facility] Calcium.ionized [Moles/Vol]o n 06-09-2022 Calcium.ionized (Bld) [Mass/Vol] 1.10 mmol/L Low 1.16-1.32 [facility] Comment on above: Order Comment: Speci men Type: BLOOD SPECIMENOrdering Facility: [facility] Address: [address] [place] [address] Performed By: #### 1 995-0 ####[facility] [id number] [place] [address] [place] ANES POSTPROC EVALon 022 ANES POSTPROC EVAL HNO ID: [id number] Author: Benigno Archer DO Service: ? Author Type: Physician Type: Anesthesia Postprocedure Evaluation Filed: 06/08/2022 2:33 PM Note Text: POST ANESTHESIA EVALUATION NOTE : 1975 Procedure Summary Date: 06/08/22 Room / Location: OR 10 / OR Anesthesia Start: 1020 Anesthesia Stop: 1240 Procedure: TOTAL THYROIDECTOMY (Thyroid) Diagnosis: Graves' disease (Graves' disease [E05.00]) Surgeons: Maxi Lala MD Responsible Provider: Miguel Ángel Jimenez MD Anesthesia Type: general ASA Status: 2 Anesthesia Type: general Airway Type: ETT Last Vitals Vitals Value Taken Time BP 146/79 06/08/22 1430 Temp 97.8 06/08/22 1433 Pulse 65 06/08/22 1431 Resp 20 06/08/22 1415 SpO2 95 % 06/08/22 1431 Vitals shown include unvalidated device data. Post Anesthesia Patient Status Patient Evaluation: PACU. PACU/ICU Patient Condition: stable. Anticipated Disposition: inpatient floor planned admission. Neurological Status: aware and responsive. Pulmonary Status: breathing comfortably on room air Airway Control: returned to baseline unsupported. Cardiovascular Status: stable. Pain Management: clinically adequate Postoperative Hydration: acceptable. Intraoperative Events: no significant anesthesia events Post Operative Nausea/Vomiting Status: no significant post operative nausea or vomiting Anesthetic Observations: Recommendation: continue current plan of care. Anesthesia Observations No Documentation SIGNATURE: Benigno Archer DO PATIENT NAME: Jeanne Stout DATE: June 08, 2022 TIME: 2:33 PM CSN: [id number] [facility] ANES PRE-OPon 06-08-2022 ANES PRE-OP HNO ID: [id number] Author: Miguel Ángel Jimenez MD Service: Anesthesiology Author Type: Physician Type: Anesthesia Preprocedure Evaluation Filed: 06/08/2022 9:59 AM Note Text: ANESTHESIOLOGY DAY OF SURGERY NOTE : 1975 Procedure Information Date/Time: 06/08/22 1020 Procedure: TOTAL THYROIDECTOMY (Thyroid) Location: OR 10 / OR Surgeons: Maxi Lala MD Estimated body mass index is 32.87 kg/m? as calculated from the following: Height as of this encounter: 172.7 cm (5' 8 ). Weight as of this encounter: 98.1 kg (216 lb 3.2 oz). Most recent hematocrit and potassium results: Hematocrit 36.9 03/21/2018 Potassium 3.8 03/21/2018 Relevant Problems No relevant active problems I - PHYSICAL EVALUATION AIRWAY Patient intubated: No. Tracheostomy tube not present Mallampati: II. TM distance: >3 FB. Neck ROM: full ROM without neurological symptoms. Mouth opening: adequate. Short neck: no. Thick neck: no DENTAL Dental findings: teeth intact. Additional exam findings: yes. CARDIOVASCULAR Normal cardiovascular observations. PULMONARY Normal pulmonary observations. II - ANESTHESIA PLAN ASA Score: 2 Anesthetic Plan: general Airway type: ETT The patient is not a current smoker. NPO Status: adequate Beta Dior Administration of chronic beta dior medication planned. Monitoring plan: standard ASA. Postoperative analgesic plan: parenteral or oral opioids and multimodal analgesia. Informed Consent Anesthetic risks, benefits, alternatives, personnel and consent discussed: yes. Patient / Responsible Libertarian agrees to proceed: yes Patient / Surrogate agrees to blood products: Yes DNR status not reviewed with patient and/or family prior to surgery. Significant changes in the patient condition since the History and Physical, not otherwise documented in primary service progress note: no. Potential Anesthesia issues that may suggest increased risk of complications or contraindication to planned procedure: none. Vitals Value Taken Time BP 142/80 06/08/22906 Pulse 63 06/08/22906 Resp 18 06/08/22906 Temp 36.6 ?C (97.8 ?F) 06/08/22906 SpO2 98 % 06/08/22906 No current facility-administered medications on file as of 06/08/2022. Outpatient Medications as of 06/08/2022 Medication Sig - atenolol (TENORMIN) 50 mg tablet Take 25 mg by mouth every morning. - methIMAzole (TAPAZOLE) 10 mg tablet Take 10 mg by mouth twice daily. - sertraline (ZOLOFT) 25 mg tablet Take 25 mg by mouth every morning. - vit/iron fum/folic ac ( 1 + 1 ORAL) Take 1 tablet by mouth every morning. LD 04/09/22 - SELENIUM ORAL Take 1 tablet by mouth every morning. LD 04/09/22 - Hydrochlorothiazide 12.5 mg capsule Take 25 mg by mouth every morning. I have interviewed and examined the patient. I have reviewed the medical record and/or the pre-anesthesia evaluation, pertinent labs, and test results. This contains updated information obtained within 48 hours of Surgery/Procedure. SIGNATURE: Miguel Ángel Jimenez MD PATIENT NAME: Jeanne Stout DATE: June 08, 2022 TIME: 9:55 AM CSN: [id number] Normal [facility] Basic metabolic 2000 panelon 06-08-2022 Anion gap [Moles/Vol] 9 mmol/L Normal - [facility] Comment on above: Order Comment: Speci men Type: BLOOD SPECIMENOrdering Facility: [facility] Address: [address] [place], [place] [address] Performed By: #### H , 59270-1 ####[facility] [id number] [place] [address] [place] Calcium [Mass/Vol] 9.4 mg/dL Normal 8.5-10.5 [facility] Comment on above: Order Comment: Speci men Type: BLOOD SPECIMENOrdering Facility: [facility] Address: [address] [place] [address] Performed By: #### Bea GEORGE, 20335-7 ####[facility] [id number] [place] [address] [place] Chloride [Moles/Vol] 104 mmol/L Normal 98-107 [facility] Comment on above: Order Comment: Speci men Type: BLOOD SPECIMENOrdering Facility: [facility] Address: [address] [place] [address] Performed By: #### Bea GEORGE, 71099-4 ####[facility] [id number] [place] [address] [place] CO2 [Moles/Vol] 27 mmol/L Normal 21-32 [facility] Comment on above: Order Comment: Speci men Type: BLOOD SPECIMENOrdering Facility: [facility] Address: [address] [place] [address] Performed By: #### Bea GEORGE, 67663-5 ####[facility] [id number] [place] [address] [place] Creatinine [Mass/Vol] 0.83 mg/dL Normal 0.51-0.95 [facility] Comment on above: Order Comment: Speci men Type: BLOOD SPECIMENOrdering Facility: [facility] Address: [address] [place] [address] Result Comment: Anamaria ents receiving either N-Acetylcysteine (NAC) or Metamizole prior to venipuncture, may have falsely depressed results. Performed By: #### Bea GEORGE, 42881-7 ####[facility] [id number] [address] [place] ESTIMATED GLOMERULAR FILTRATION RATE 88 mL/min/1.73m??? Normal >=60 [facility] Comment on above: Order Comment: Hossein mendez Type: BLOOD SPECIMENOrdering Facility: [facility] Address: [address] [place] [address] Result Comment: [facility] mated Glomerular Filtration Rate (eGFR) is calculated using the 2020 CKD-EPI creatinine equation. This equation utilizes serum creatinine, sex, and age as parameters. The creatinine assay has traceable calibration to isotope dilution-mass spectrometry. Refer to KDIGO guidelines for clinical interpretation. In patients with unstable renal function, e.g. those with acute kidney injury, the eGFR may not accurately reflect actual GFR. Performed By: #### H CG, 42610-3 ####[facility]ORY[facility] [id number] [place] [id number] [place] Glucose [Mass/Vol] 87 mg/dL Normal 70-100 [facility] Comment on above: Order Comment: Hossein mendez Type: BLOOD SPECIMENOrdering Facility: [facility] Address: [address] [place] [address] Result Comment: The [place] [employer] (ADA) provides guidance for cutoff values for fasting glucose and random glucose. The ADA defines fasting as no caloric intake for at least 8 hours. Fasting plasma glucose results between 100 to 125 mg/dL indicate increased risk for diabetes (prediabetes). Fasting plasma glucose results greater than or equal to 126 mg/dL meet the criteria for diagnosis of diabetes. In the absence of unequivocal hyperglycemia, results should be confirmed by repeat testing. In a patient with classic symptoms of hyperglycemia or hyperglycemic crisis, random plasma glucose results greater than or equal to 200 mg/dL meet the criteria for diagnosis of diabetes. Reference: Standards of Medical Care in Diabetes 2016, [place] [employer]. Diabetes Care. 2016.39(Suppl 1). Results may be falsely elevated after the administration of Sulfapyridine. Results may be falsely depressed after the administration of Sulfasalazine. Performed By: #### H CG, 62929-0 ####[facility]ORY[facility] [id number] [place] [id number] [place] Potassium [Moles/Vol] 4.0 mmol/L Normal 3.5-5.1 [facility] Comment on above: Order Comment: Speci men Type: BLOOD SPECIMENOrdering Facility: [facility] Address: [address] [place] [address] Result Comment: Slig ht Hemolysis, Result may be affected. Performed By: #### Bea DORIS, 50531-0 ####[facility]ORY[facility]IA [id number] [place] [address] [place] Sodium [Moles/Vol] 140 mmol/L Normal 136-145 [facility] Comment on above: Order Comment: Speci men Type: BLOOD SPECIMENOrdering Facility: [facility] Address: [address] [place] [address] Performed By: #### Bea DORIS, 77533-1 ####[facility]ORY[facility] [id number] [place] [address] [place] Urea nitrogen [Mass/Vol] 15 mg/dL Normal 7-26 [facility] Comment on above: Order Comment: Speci men Type: BLOOD SPECIMENOrdering Facility: [facility] Address: [address] [place] [address] Performed By: #### Bea DORIS, 64598-4 ####[facility]ORY[facility] [id number] [place] [address] [place] Calcium.ionized [Moles/Vol]o n 06-08-2022 Calcium.ionized (Bld) [Mass/Vol] 1.10 mmol/L Low 1.16-1.32 [facility] Comment on above: Order Comment: Speci men Type: BLOOD SPECIMENOrdering Facility: [facility] Address: [address] [place] [address] Performed By: #### 1 995-0 ####[facility]ORY[facility]IA [id number] [place] [address] [place] HCG QUAL BLDon 06-08-2022 HCG, QUALITATIVE Negative Normal Negative [facility] Comment on above: Order Comment: Speci men Type: BLOOD SPECIMENOrdering Facility: [facility] Address: [address] [place], [place] [address] Performed By: #### H , 90815-2 ####[facility]ORY[facility] [id number] [place] [id number] [place] HISTORY PHYSICALon HISTORY PHYSICAL HNO ID: [id number] Author: Maxi Lala MD Service: ? Author Type: Physician Type: HANDP Filed: 06/08/2022 10:16 AM Note Text: No interval changes. Normal [facility] OPERATIVE NOon 06-08-2022 OPERATIVE NO HNO ID: [id number] Author: Maxi Lala MD Service: ? Author Type: Physician Type: Operative Report Filed: 06/08/2022 12:56 PM Note Text: OPERATIVE/PROCEDURE REPORT LOG ID: [id number] SURGERY/PROCEDURE DATE: 06/08/2022 INCISION/PROCEDURE START TIME: 10:37 AM INCISION CLOSE/PROCEDURE END TIME: 12:23 PM SURGEON(S)/PROCEDURALIS T(S) AND FILTER MACHINE OPERATOR(S): Surgeon(s) and Role: * Maxi Lala MD - Primary No Additional Staff PRE-OP/PRE-PROCEDURE DIAGNOSIS: Graves' disease, toxic goiter SURGERY/PROCEDURE(S): Total thyroidectomy ANESTHESIA: General INDICATIONS: This 47-year-old has had Graves' disease with a hyperplastic toxic goiter. It has been treated medically with beta-blockers and methimazole. She is not responding well to medical therapy and is a candidate for thyroidectomy surgery. She was referred by her baggage porter head and wishes to proceed with that procedure. All risks and alternatives were discussed preoperatively. SURGERY/PROCEDURE DETAILS: The patient was brought to the operating room and placed in the supine position. General anesthesia was induced and she was orally intubated without complications. The neck was extended with a shoulder roll. The proposed site of the incision was marked and injected. She was prepped and draped in the usual sterile fashion. A 5 cm incision was created in a natural skin crease and carried sharply through the platysma layer. Subplatysmal flaps were developed and snapped to the drapes with silk sutures. The laryngeal strap muscles were divided vertically in the midline and reflected bluntly off the underlying thyroid lobes. There was extensive inflammatory adhesions secondary to chronic autoimmune inflammation. The gland is not dissected bluntly very well at all and most all of the dissection had to be done sharply with lots of cautery and ties and clips. The thyroid isthmus was divided vertically in the midline. I began my dissection with the right thyroid lobe. The major vascular pedicles were ligated superiorly and inferiorly. It was difficult to mobilize the gland as it was extremely fibrotic and hard and not pliable enough to really mobilize out of the neck. Recurrent laryngeal nerve was identified and I believe 1 parathyroid gland as well. Identical procedure was performed on the left side. The thyroid lobes were submitted to pathology for permanent section. The wound was packed with small strip of Surgicel in the tracheoesophageal groove bilaterally for hemostasis and a 7 mm Derek-Lozano drain was placed through the inferior skin flap. The wound was closed using interrupted Vicryl sutures on the strap muscles and platysma layer. The skin was closed with subcuticular 4-0 Vicryl and Steri-Strips. POST-OP/POST-PROCEDURE DIAGNOSIS: Same as Preop ESTIMATED BLOOD LOSS: 50 mls SPECIMENS: Right and left thyroid lobes IMPLANTABLE DEVICES: None DRAINS: 7 mm Derek-Lozano COMPLICATIONS: None PARTICIPATION IN SURGERY/PROCEDURE: I/primary surgeon/proceduralist performed the entire procedure. SIGNATURE: Maxi Lala MD PATIENT NAME: Jeanne Stout DATE: June 08, 2022 TIME: 12:[address] [facility] SURGICAL PATHOLOGYon [address] [facility] Comment on above: Order Comment: Speci men Type: TISSUE SPECIMENOrdering Facility: [facility] Address: [address] [place] [id number] Result Comment: Surg [facility] Pathology Report Case: [id number] Authorizing Provider: Maxi Lala MD Collected: 06/08/2022 11:04 AM Ordering Location: [facility] Surgery Received: 06/08/2022 01:21 PM Pathologist: Maya Carmichael DO Specimens: A) - THYROID LOBE RIGHT, Right thyroid lobe B) - THYROID LOBE LEFT, Left thyroid lobe Performed By: #### S ####[facility] [id number] [place] [address] [place] CLINICAL HISTORY Normal [facility] Comment on above: Order Comment: Speci men Type: TISSUE SPECIMENOrdering Facility: [facility] Address: [address] [place] [address] Result Comment: Grav es' disease [E05.00] Total thyroidectomy Performed By: #### S ####[facility]ORYCLIA [id number] [address] FINAL DIAGNOSIS Normal [facility] Comment on above: Order Comment: Speci men Type: TISSUE SPECIMENOrdering Facility: [facility] Address: [address] [place] [address] Result Comment: A. R ight thyroid lobe, lobectomy: - Nodular hyperplasia. - Small fragments of hyaline cartilage and parathyroid gland present. - No malignancy identified. B. 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 - Focal fibrosis and hemosiderin deposition. - No parathyroid gland tissue identified. - No malignancy identified. - Additional sections examined. Performed By: #### S ####[facility] [id number] [address] FINAL PERFORMING LAB Normal [facility] Comment on above: Order Comment: Denisei vanessa Type: TISSUE SPECIMENOrdering Facility: [facility] Address: [address] [place] [address] Result Comment: Diag nostic interpretation performed at [facility], [address] [place] [address] CLIA# [id number] Self Pay Representative: Michaela Forman M.D. Performed By: #### S ####[facility]ORY[facility] [id number] [address] GROSS DESCRIPTION Normal [facility] Comment on above: Order Comment: Denisei vanesas Type: TISSUE SPECIMENOrdering Facility: [facility] Address: [address] [place] [address] Result Comment: A. T HYROID LOBE RIGHT Received in formalin labeled with the patient's name and right thyroid lobe, is a 14 g, 4.9 x 3.2 x 2 cm product of a right thyroid lobectomy. The outer surface is red and ranges from smooth to rough. No orientation is given. The specimen is inked and serially sectioned to show dark red glistening cut surfaces. There are a couple possible nodules, 0.4 x 1.2 x 0.6 cm, and 1.0 x 0.9 x 0.8 cm (3, 4). These nodules are well to ill-defined, glistening and red. No other lesions are grossly identified. The remaining parenchyma is red and shows usual fine architecture. Insurance Account Assistant sections are submitted in 5 cassettes. B. THYROID LOBE LEFT Received in formalin labeled with the patient's name and left thyroid lobe, is a 17 g, 6.2 x 3 x 2 cm product of a left thyroid lobectomy. The outer surface is red and ranges from smooth to rough. No orientation is given. The specimen is inked and serially sectioned to show a 2.2 x 1.4 x 1.4 cm kolb well-circumscribed nodule that extends to the closest inked margin. There are few red, gelatinous appearing nodules measuring up to 0.8 cm in greatest dimension. The remaining parenchyma is dark red and shows the usual fine architecture. Insurance Account Assistant sections are submitted in 5 cassettes. Additional field marketing representative sections submitted in cassettes B6-B12 (06/09/2022) B6-B7, B8-B9 bisected segments, B11 also bisected Maya Carmichael DO Gross examination performed at [facility], [address] [place] [address] CLIA#[id number] BJA June 08, 2022 1:58 PM Performed By: #### S ####[facility]ORY[facility]IA [id number] [place] [address] [place] MICROSCOPIC DESCRIPTION Normal [facility] Comment on above: Order Comment: Speci men Type: TISSUE SPECIMENOrdering Facility: [facility] Address: [facility] [place] [address] Result Comment: Sammie enrique original and sixteen additional H&E stained slides examined. Intradepartmental consultation with Michaela Forman M.D. (select slides only). Performed By: #### S ####[facility]ORYCLIA [id number] [place] [id number] [place] ANES PREOPon 06-05-2022 ANES PREOP HNO ID: [id number] Author: Haley Ugalde APRN.CNP Service: Anesthesiology Author Type: Nurse Practitioner Type: Anesthesia PreOp Filed: 06/05/2022 3:05 PM Note Text: 47yo obese female, nonsmoker. PMH: PONV, HTN, Grave's on Tapazole, depression. Normal [facility] NURSING PROGon 06-05-2022 NURSING PROG HNO ID: [id number] Author: Lauryn Sahni RN Service: Nursing Author Type: Registered Nurse Type: Nursing Progress Note Filed: 06/05/2022 4:00 PM Note Text: PRE-PROCEDURE INSTRUCTIONS TO PREPARE FOR YOUR PROCEDURE: Your arrival time for your procedure is 0845. Do NOT eat any solid foods after MIDNIGHT the night prior to your procedure - this includes gum or mints. You can drink clear liquids* up until 0645, which is 2 hours before your arrival time. *Clear liquids = water, carbohydrate drink (sports drink that is clear or yellow in color), Ensure Pre-Surgery (given by MICHAEL or your ), fruit juice without pulp (apple/cranberry), clear tea, black coffee (no cream). NO ALCOHOL. Shower the morning of the procedure, put on clean clothes, and have clean sheets for your bed to help prevent infection after your procedure. Leave all valuables such as jewelry including rings, piercings, wallets, and purses at home. Wear comfortable, loose-fitting clothing. If you wear glasses or contacts, please bring a case. SPECIAL INSTRUCTIONS: If instructed, bring your first voided urine specimen with you. If you were provided skin preparation to use prior to your procedure, complete this as directed. If you use crutches or a walker, bring them with you. If you have a home CPAP/BIPAP machine, bring it with you. If you were instructed to complete a fleets enema or bowel prep, complete as directed. Bring copy of Living Will/Power of Arbitrator. Do not smoke or chew. If you use tobacco, quit or at least cut down before surgery. Do not smoke or chew after midnight the day before your surgery. This effects bleeding, infection, healing, and so much more. Do not take any Diet or Herbal Supplements 2 weeks prior to your surgery date. Please notify your physician if there is any change in your physical condition such as a cold, cough, fever, sore throat, or skin irritation near the surgical site. Visitors under the age of 14 are restricted in the Surgery Center. UPON ARRIVAL: Access to [facility]) is located on [address] [employer] parking is available for your convenience from 5am-5pm- there is a $5.00 charge for this service. Take the elevators directly inside the entrance to the 1st Floor Surgery Lobby. Sign in at the podium located to the left when you get off the elevators. A payment may be expected at the time of service. One visitor may come back to the preoperative area with you. The preoperative staff will be reviewing your medical history, please let them know if you prefer not to have a visitor with you during this time. Once you are ready for surgery, two visitors at a time are permitted in your preoperative room. CURRENT MEDICATIONS No current facility-administered medications for this encounter. Current Outpatient Medications Medication Sig Dispense Refill Cetirizine (ZYRTEC) 10 mg cap Take by mouth once daily. atenolol (TENORMIN) 50 mg tablet Take 25 mg by mouth every morning. methIMAzole (TAPAZOLE) 10 mg tablet Take 10 mg by mouth twice daily. sertraline (ZOLOFT) 25 mg tablet Take 25 mg by mouth every morning. vit/iron fum/folic ac ( 1 + 1 ORAL) Take 1 tablet by mouth every morning. LD 04/09/22 SELENIUM ORAL Take 1 tablet by mouth every morning. LD 04/09/22 Hydrochlorothiazide 12.5 mg capsule Take 25 mg by mouth every morning. Take all routine medications except for vitamins and HCTZ. [facility] SARS-CoV-2 RNA Resp Ql JAYNA+p christianne 04-17-2022 SARS-CoV-2 (COVID-19) RNA JAYNA+probe Ql (Resp) COVID 19 RESULT: SARS-CoV-2 (Agent of COVID-19) Not Detected by RT-PCR or equivalent method. Normal [facility] Comment on above: Performed By: #### 9 [id number] #### [facility] CLIA [id number] [address] [place] [address] [place] ANES PREOPon 04-16-2022 ANES PREOP HNO ID: [id number] Author: Kaur Hodges APRN.CINDI Service: ? Author Type: Nurse Practitioner Type: Anesthesia PreOp Filed: 04/17/2022 8:54 AM Note Text: 47 yo obese, nonsmoker female with HX: HTN, PONV, thyroid disease, anemia. Dr Winnie Day provided med clearance. Normal [facility] Vital Signs Date Time Vital Sign Value Performing Clinician Geovany christopher 11-25-2023 19:31-0400 Body temperature 97 [degF] Carrie Garcia APRN.TERADATA ARCHITECT Work Phone: [facility] 11-25-2023 19:31-0400 Body weight 102 kg Carrie Garcia APRN.TERADATA ARCHITECT Work Phone: [facility] 11-25-2023 19:31-0400 Diastolic blood pressure 98 mm[Hg] Carrie Stewart-Cruzito SANDBLASTER SUPERVISOR.TERADATA ARCHITECT Work Phone: [facility] 11-25-2023 19:31-0400 Heart rate 77 /min Carrie Garcia APRN.TERADATA ARCHITECT Work Phone: [facility] 11-25-2023 19:31-0400 Respiratory rate 20 /min Carrie Garcia APRN.TERADATA ARCHITECT Work Phone: [facility] 11-25-2023 19:31-0400 SaO2% (BldA) [Mass fraction] 97 % Carrie Garcia SANDBLASTER SUPERVISOR.TERADATA ARCHITECT Work Phone: [facility] 11-25-2023 19:31-0400 Systolic blood pressure 152 mm[Hg] Carrie Stewart-Cruzito CAMARGON.TERADATA ARCHITECT Work Phone: [facility] Encounters Encounter Date Encounter Type Care Provider Facility Start: 11-25-2023 End: 11-25-2023 [facility] Facility:[facility] Start: 11-25-2023 End: 11-25-2023 Patient encounter procedure Carrie Garcia APRN.CNP Work Phone: [facility] Comment on above: Dysuria (Primary Dx) ; Vaginal itching Start: 06-08-2022 End: 06-09-2022 ambulatory [facility] Facility:[id number] Start: 06-05-2022 End: 06-06-2022 ambulatory [facility] Facility:[id number] Start: 04-17-2022 End: 04-17-2022 ambulatory [facility] Facility:[id number] Start: 04-17-2022 Encounter for preprocedural laboratory examination [facility] Procedures Date Procedure Procedure Detail Performing Clinician Start: 11-25-2023 Urnls dip stick/tabl et rgnt auto w/o microscopy Carrie Garcia APRN.CINDI Work Phone: Plan of Treatment Date Care Activity Detail Author Start: 06-08-2025 Diabetes Screening Diabetes Screenin g [facility] Start: 09-13-2023 Depression Assessment Depression Ass essment [facility] Start: 05-14-2023 Covid-19 Vaccine ( season) Covid-19 Vaccine ( season) [facility] Start: 05-14-2023 Influenza vaccination Influenza Vacc ine (#1) [facility] Start: 01-16-2020 Lipid panel Lipid Screening [facility] Start: 01-16-2020 Screening for malign ant neoplasm of colon [facility] Start: 2015 Screening for malign ant neoplasm of breast Mammogram Screening [facility] Start: 2005 Screening for malign ant neoplasm of cervix HPV Testing [facility] Start: 01-16-1996 Screening for malign ant neoplasm of cervix Pap Testing [facility] Start: 1994 Hepatitis B Vaccine (1 of 3 - 19+ 3-dose series) Hepatitis B Vaccine (1 of 3 - 19+ 3-dose series) [facility] Start: 1994 Urine microalbumin profile DTaP,Tdap,Td Vaccine (1 - Tdap) [facility] Start: 1993 Annual PCP Team Flight Manager elisha Disease Visit Annual PCP Team Chronic Disease Visit [facility] Start: 1993 BP Controlled (<130/80) BP Controlle d (<130/80) [facility] Start: 1993 Hepatitis C screening Hepatitis C Sc agusto [facility] Start: 1993 HIV screening HIV Screening [facility] Bacteria identified in Urine by Culture URINE CULTURE Microbiology Routine Dysuria Ordered: 11/25/2023 [facility] Work Phone: Comment on above: Ordered: 11/25/2023 BACTERIAL VAGINOSIS NAAT BACTERIAL VAGINOSIS NAAT Lab Routine Vaginal itching 11/25/2023 7:47 PM EDT [facility] Work Phone: CANDE/TRICHOMONAS NAAT CANDE/TRICHOMONAS NAAT Lab Routine Vaginal itching 11/25/2023 7:47 PM EDT [facility] Work Phone: Payers Date Payer Category Payer Unknown [id number] 2019 Unknown MMO MMO [employer] PPO [id number] 2019-Present [phone] [address] [place] [address] PPO [id number] Social History Date Type Detail Facility Start: 11-25-2023 Tobacco smoking stat [facility] Never smoked tobacco [facility] Start: 11-25-2023 Tobacco use and exposure Smoke less tobacco non-user [facility] Start: 11-25-2023 Alcohol intake Current drinke r of alcohol (finding) [facility] Start: 08-21-2020 End: 11-25-2023 History of Social function [facility] Start: 08-21-2020 End: 11-25-2023 Tobacco use panel [facility] National Score (1-10 0), lower number is lower risk Not on file [facility] Start: 04-15-2022 Alcohol Comment social [facility] Start: 1975 Sex Assigned At Not on file [facility] Clinical Notes 04-16-2022 to 11-25-2023 Addendum Note - Carrie Garcia APRN.TERADATA ARCHITECT - 11/25/2023 8:00 PM EDTPatient InstructionsCarrie Garcia APRN.TERADATA ARCHITECT - 11/25/2023 7:36 PM EDT Note Date & Type Note Facility 11-25-2023 Note HNO ID: [id number] Author: CARRIE GARCIA APRN.CINDI Service: ? Author Type: Nurse Practitioner Type: Progress Notes Filed: 11/25/2023 19:55 Note Text: Subjective Vaginal Problem Pertinent negatives include no abdominal pain, chills, fever, nausea or vomiting. Jeanne Stout is a 48 year old female who presents with vaginal itching for the past 2 weeks Dysuria for the past week. She has been using monistat for the past week. Denies concern for STD LMP over one year ago-post menopause Is currently sexually active. Denies any vaginal rash or sores. Review of Systems Constitutional: Negative for chills and fever. Respiratory: Negative. Cardiovascular: Negative. Gastrointestinal: Negative for abdominal pain, nausea and vomiting. Genitourinary: Positive for dysuria, frequency and vaginal discharge. Negative for flank pain, hematuria and urgency. Musculoskeletal: Negative for back pain. BP 152/98 Pulse 77 Temp 36.1 ?C (97 ?F) Resp 20 Wt 102 kg (224 lb 13.9 oz) LMP (LMP Unknown) SpO2 97% BMI 34.19 kg/m? 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 MEDICATIONS - levothyroxine (SYNTHROID) 125 mcg tablet Take 125 mcg by mouth every morning. - lisinopril (ZESTRIL) 10 mg tablet Take 1 tablet by mouth every afternoon. - Calcium-Cholecalciferol, D3, (CALCIUM 600 + D) 600-125 mg-unit tab Take 2 tablets by mouth twice daily for 15 days. - Cetirizine (ZYRTEC) 10 mg cap Take by mouth once daily. - sertraline (ZOLOFT) 25 mg tablet Take 25 mg by mouth every morning. - vit/iron fum/folic ac ( 1 + 1 ORAL) Take 1 tablet by mouth every morning. LD 04/09/22 - Hydrochlorothiazide 12.5 mg capsule Take 25 mg by mouth every morning. - SELENIUM ORAL Take 1 tablet by mouth every morning. LD 04/09/22 (Patient not taking: Reported on 11/25/2023) No family history on file. Social History Tobacco Use - Smoking status: Never - Smokeless tobacco: Never Substance Use Topics - Alcohol use: Yes Comment: social - Drug use: Never Objective Physical Exam Vitals and nursing note reviewed. Constitutional: General: She is not in acute distress. Appearance: Normal appearance. She is not ill-appearing. Cardiovascular: Rate and Rhythm: Normal rate and regular rhythm. Heart sounds: Normal heart sounds. Pulmonary: Effort: Pulmonary effort is normal. No respiratory distress. Breath sounds: Normal breath sounds. No wheezing or rales. Abdominal: General: There is no distension. Palpations: Abdomen is soft. There is no mass. Tenderness: There is no abdominal tenderness. There is no right CVA tenderness, left CVA tenderness or guarding. Genitourinary: Comments: Patient elected to self-swab Skin: General: Skin is warm and dry. Neurological: Mental Status: She is alert. ASSESSMENT/PLAN: 1. Dysuria - ICD9: 788.1, ICD10: R30.0 (primary diagnosis) acute - UA positive for hematuria-trace - Send urine for culture - UA DIP, URINE (POC) 2. Vaginal itching - ICD9: 698.1, ICD10: N89.8 - continue OTC monistat for now until test results are available. - CANDE/TRICHOMONAS NAAT - BACTERIAL VAGINOSIS NAAT - Follow-up with your PCP in 3-5 days if symptoms have not improved or sooner if symptoms worsen - Discussed red flags and need for immediate medical evaluation if any occur. - Discussed supportive care treatment with fluids, rest and analgesia. - Discussed expected course of illness Carrie Garcia APRN.CNP [facility] 11-25-2023 Miscellaneous Notes Addended by: CARRIE GARCIA on: 11/25/2023 08:00 PM Modules accepted: Orders documented in this encounter [facility] 11-25-2023 Instructions Carrie Garcia APRN.TERADATA ARCHITECT - 11/25/2023 7:54 PM EDT ASSESSMENT/PLAN: 1. Dysuria - ICD9: 788.1, ICD10: R30.0 (primary diagnosis) acute - UA positive for hematuria-trace - Send urine for culture - UA DIP, URINE (POC) 2. Vaginal itching - ICD9: 698.1, ICD10: N89.8 - continue OTC monistat for now until test results are available. - CANDE/TRICHOMONAS NAAT - BACTERIAL VAGINOSIS NAAT - Follow-up with your PCP in 3-5 days if symptoms have not improved or sooner if symptoms worsen - Discussed red flags and need for immediate medical evaluation if any occur. - Discussed supportive care treatment with fluids, rest and analgesia. - Discussed expected course of illness Carrie Garcia APRN.TERADATA ARCHITECT documented in this encounter [facility] 11-25-2023 History of Present illness Narrative Subjective Vaginal Problem Pertinent negatives include no abdominal pain, chills, fever, nausea or vomiting. Jeanne Stout is a 48 year old female who presents with vaginal itching for the past 2 weeks Dysuria for the past week. She has been using monistat for the past week. Denies concern for STD LMP over one year ago-post menopause Is currently sexually active. Denies any vaginal rash or sores. Review of Systems Constitutional: Negative for chills and fever. Respiratory: Negative. Cardiovascular: Negative. Gastrointestinal: Negative for abdominal pain, nausea and vomiting. Genitourinary: Positive for dysuria, frequency and vaginal discharge. Negative for flank pain, hematuria and urgency. Musculoskeletal: Negative for back pain. 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 MEDICATIONS levothyroxine (SYNTHROID) 125 mcg tablet Take 125 mcg by mouth every morning. lisinopril (ZESTRIL) 10 mg tablet Take 1 tablet by mouth every afternoon. Calcium-Cholecalciferol, D3, (CALCIUM 600 + D) 600-125 mg-unit tab Take 2 tablets by mouth twice daily for 15 days. Cetirizine (ZYRTEC) 10 mg cap Take by mouth once daily. sertraline (ZOLOFT) 25 mg tablet Take 25 mg by mouth every morning. vit/iron fum/folic ac ( 1 + 1 ORAL) Take 1 tablet by mouth every morning. LD 04/09/22 Hydrochlorothiazide 12.5 mg capsule Take 25 mg by mouth every morning. SELENIUM ORAL Take 1 tablet by mouth every morning. LD 04/09/22 (Patient not taking: Reported on 11/25/2023) No family history on file. Social History Tobacco Use Smoking status: Never Smokeless tobacco: Never Substance Use Topics Alcohol use: Yes Comment: social Drug use: Never Objective Physical Exam Vitals and nursing note reviewed. Constitutional: General: She is not in acute distress. Appearance: Normal appearance. She is not ill-appearing. Cardiovascular: Rate and Rhythm: Normal rate and regular rhythm. Heart sounds: Normal heart sounds. Pulmonary: Effort: Pulmonary effort is normal. No respiratory distress. Breath sounds: Normal breath sounds. No wheezing or rales. Abdominal: General: There is no distension. Palpations: Abdomen is soft. There is no mass. Tenderness: There is no abdominal tenderness. There is no right CVA tenderness, left CVA tenderness or guarding. Genitourinary: Comments: Patient elected to self-swab Skin: General: Skin is warm and dry. Neurological: Mental Status: She is alert. ASSESSMENT/PLAN: 1. Dysuria - ICD9: 788.1, ICD10: R30.0 (primary diagnosis) acute - UA positive for hematuria-trace - Send urine for culture - UA DIP, URINE (POC) 2. Vaginal itching - ICD9: 698.1, ICD10: N89.8 - continue OTC monistat for now until test results are available. - CANDE/TRICHOMONAS NAAT - BACTERIAL VAGINOSIS NAAT - Follow-up with your PCP in 3-5 days if symptoms have not improved or sooner if symptoms worsen - Discussed red flags and need for immediate medical evaluation if any occur. - Discussed supportive care treatment with fluids, rest and analgesia. - Discussed expected course of illness Carrie Garcia APRN.TERADATA ARCHITECT documented in this encounter [facility] 06-08-2022 Note HNO ID: [id number] Author: OMID Kuo Service: ? Author Type: Urban Planning Professor Type: Anesthesia Procedure Notes Filed: 06/08/2022 10:41 AM Note Text: ANESTHESIOLOGY PROCEDURE NOTE Airway General Information Procedure Start Time/Medication Administration: 06/08/2022 10:27 AM Patient location during procedure: OR Timeout Performed Pre-procedure: timeout performed Consent Obtained: Yes Patient identity confirmed: arm band Staffing Anesthesiologist: Miguel Ángel Jimenez MD CAA: OMID Kuo Performed by: ESME Indications and Patient Condition Indications for airway management: anesthesia Preoxygenated: yes anesthesia circuit Patient position: sniffing Method: asleep Difficult Mask: No Final Airway Details Final airway type: endotracheal airway Final Endotracheal Airway: ETT Cuffed: yes Successful intubation technique: direct laryngoscopy Endotracheal tube insertion site: oral Blade: Caro Blade size: #3 ETT size (mm): 7.0 Measured from: lips Measurement (cm): 20 Placement verified by: chest auscultation and capnometry Cormack-Lehane Classification: grade I - full view of glottis Number of attempts at approach: 1 Failed airway: no Airway not difficult SIGNATURE: OMID Kuo PATIENT NAME: Jeanne Stout DATE: June 08, 2022 TIME: 10:40 AM CSN: [id number] [facility] 06-05-2022 Note HNO ID: [id number] Author: Piper Alcantara LPN Service: ? Author Type: LICENSED NURSE Type: Progress Notes Filed: 06/05/2022 6:37 PM Note Text: COVID swab completed patient tolerated well. Piper Alcantara LPN [facility] 06-05-2022 Influenza virus A and B RNA and SARS-CoV-2 (COVID-19) N gene panel JAYNA+probe (Resp) COVID 19 RESULT: SARS-CoV-2 (Agent of COVID-19) Not Detected by RT-PCR or equivalent method. INFLUENZA A PCR: Negative for Influenza A by RT-PCR INFLUENZA B PCR: Negative for Influenza B by RT-PCR [facility] Comment on above: Performed By: #### [id number] #### [facility] CLIA [id number] [address] [place] [address] [place] 06-05-2022 Note HNO ID: [id number] Author: Haley Ugalde APRN.TERADATA ARCHITECT Service: Anesthesiology Author Type: Nurse Practitioner Type: Progress Notes Filed: 06/05/2022 3:05 PM Note Text: Summary: dos meds Day of Surgery Medication Instructions: No current facility-administered medications for this encounter. Current Outpatient Medications Medication Sig Dispense Refill Cetirizine (ZYRTEC) 10 mg cap Take by mouth once daily. atenolol (TENORMIN) 50 mg tablet Take 25 mg by mouth every morning. methIMAzole (TAPAZOLE) 10 mg tablet Take 10 mg by mouth twice daily. sertraline (ZOLOFT) 25 mg tablet Take 25 mg by mouth every morning. vit/iron fum/folic ac ( 1 + 1 ORAL) Take 1 tablet by mouth every morning. LD 04/09/22 SELENIUM ORAL Take 1 tablet by mouth every morning. LD 04/09/22 Hydrochlorothiazide 12.5 mg capsule Take 25 mg by mouth every morning. Take all routine medications except for vitamins and HCTZ. [facility] 04-17-2022 Note HNO ID: [id number] Author: Klaudia Saini RN Service: Nursing Author Type: Registered Nurse Type: Progress Notes Filed: 04/17/2022 1:59 PM Note Text: PRE-PROCEDURE INSTRUCTIONS TO PREPARE FOR YOUR PROCEDURE: - Your arrival time for your procedure is 0945. - Do NOT eat any solid foods after MIDNIGHT the night prior to your procedure - this includes gum or mints. - You can drink clear liquids* up until 0745, which is 2 hours before your arrival time. *Clear liquids = water, carbohydrate drink (sports drink that is clear or yellow in color), Ensure Pre-Surgery (given by MICHAEL or your DrCecilia), fruit juice without pulp (apple/cranberry), clear tea, black coffee (no cream). NO ALCOHOL. - Shower the morning of the procedure, put on clean clothes, and have clean sheets for your bed to help prevent infection after your procedure. - Leave all valuables such as jewelry including rings, piercings, wallets, and purses at home. - Wear comfortable, loose-fitting clothing. - If you wear glasses or contacts, please bring a case. SPECIAL INSTRUCTIONS: - If instructed, bring your first voided urine specimen with you. Instructed to bring in specimen DOS. - If you were provided skin preparation to use prior to your procedure, complete this as directed. - If you were provided Ensure Pre-Surgery drink, you need to drink this at na. This should be consumed quickly (in less than 5 minutes, rather than sipped over time) - If you use crutches or a walker, bring them with you. - If you have a home CPAP/BIPAP machine, bring it with you. - If you were instructed to complete a fleets enema or bowel prep, complete as directed. - Bring copy of Living Will/Power of Arbitrator. - Do not smoke or chew. If you use tobacco, quit or at least cut down before surgery. Do not smoke or chew after midnight the day before your surgery. This effects bleeding, infection, healing, and so much more. - Do not take any Diet or Herbal Supplements 2 weeks prior to your surgery date. - Please notify your physician if there is any change in your physical condition such as a cold, cough, fever, sore throat, or skin irritation near the surgical site. - Visitors under the age of 14 are restricted in the Surgery Center. UPON ARRIVAL: - Access to [facility] (the glass building) is located on [address] - Retail Cashier parking is available for your convenience from 5am-5pm- there is a $5.00 charge for this service. - Take the elevators directly inside the entrance to the 1st Floor Surgery Lobby. - Sign in at the podium located to the left when you get off the elevators. - A payment may be expected at the time of service. - One visitor may come back to the preoperative area with you. The preoperative staff will be reviewing your medical history, please let them know if you prefer not to have a visitor with you during this time. Once you are ready for surgery, two visitors at a time are permitted in your preoperative room. Day of Surgery Medication Instructions: No current facility-administered medications for this encounter. Current Outpatient Medications Medication Sig Dispense Refill - atenolol (TENORMIN) 50 mg tablet Take 25 mg by mouth every morning. - methIMAzole (TAPAZOLE) 10 mg tablet Take 10 mg by mouth twice daily. - sertraline (ZOLOFT) 25 mg tablet Take 25 mg by mouth every morning. - vit/iron fum/folic ac ( 1 + 1 ORAL) Take 1 tablet by mouth every morning. LD 04/09/22 - SELENIUM ORAL Take 1 tablet by mouth every morning. LD 04/09/22 - Hydrochlorothiazide 12.5 mg capsule Take 25 mg by mouth every morning. Patient may take all am meds DOS except vitamins and hydrochlorothiazide Saaida Saini RN [facility] 04-17-2022 Note HNO ID: [id number] Author: Mady Almaraz MA Service: ? Author Type: Store Team Leader Type: Progress Notes Filed: 04/17/2022 12:17 PM Note Text: Presents for outpatient COVID swab per outside Doctors orders. Patient tolerated well. Specimen placed in lab for processing. Outpatient provider to inform patient of results. Mady Almaraz MA [facility] 04-16-2022 Note HNO ID: [id number] Author: Kaur Hodges APRN.CINDI Service: ? Author Type: Nurse Practitioner Type: Progress Notes Filed: 04/16/2022 12:03 PM Note Text: Day of Surgery Medication Instructions: No current facility-administered medications for this encounter. Current Outpatient Medications Medication Sig Dispense Refill - atenolol (TENORMIN) 50 mg tablet Take 25 mg by mouth every morning. - methIMAzole (TAPAZOLE) 10 mg tablet Take 10 mg by mouth twice daily. - sertraline (ZOLOFT) 25 mg tablet Take 25 mg by mouth every morning. - vit/iron fum/folic ac ( 1 + 1 ORAL) Take 1 tablet by mouth every morning. LD 04/09/22 - SELENIUM ORAL Take 1 tablet by mouth every morning. LD 04/09/22 - Hydrochlorothiazide 12.5 mg capsule Take 25 mg by mouth every morning. Patient may take all am meds DOS except vitamins and hydrochlorothiazide [facility] Evaluation note Diagnosis Dysuria- Primary Vaginal itching Pruritus of genital organs documented in this encounter [facility] Summary Purpose Family History No Family History Records FoundNo Family History Records Found Advance Directives No Advanced Directives Records FoundNo Advanced Directives Records Found Additional Source Comments INFORMATION SOURCE (unrecogn ized section and content) DATE CREATED AUTHOR 06/15/2022 [facility] DATE CREATED AUTHOR AUTHOR'S ORGANIZ ATION 11/27/2023 [facility] Source Comments (unrecognize d section and content) In the event this informatio n is protected by the Federal Confidentiality of Alcohol and Drug Abuse Patient Records regulations: The Federal rules restrict any use of the information to criminally investigate or prosecute any alcohol or drug abuse patient.[facility] Reason for Visit (unrecogniz ed section and content) Reason Comments Vaginal Problem Burning itching x 2 weeks Care Teams (unrecognized sec tion and content) Central Office Supervisor Relationship Specialty Start Date End Date Edwin Ford DO [address] [facility] [place] [address] PCP - General Family Medicine 03/21/18 FOR RECORDS PERTAINING TO PATIENTS WHO ARE OR HAVE BEEN ENROLLED IN A CHEMICAL DEPENDENCY/SUBSTANCEABUSE PROGRAM, SOME INFORMATION MAY BE OMITTED. This clinical summary was aggregated from multiple sources. Caution should be exercised in using it in the provision of clinical care. This summary normalizes information from multiple sources, and as a consequence, information in this document may materially change the coding, format and clinical context of patient data. In addition, data may be omitted in some cases. CLINICAL DECISIONS SHOULD BE BASED ON THE PRIMARY CLINICAL RECORDS. [facility] [employer] [facility]. provides no warranty or guarantee of the accuracy or completeness of information in this document.
== END | disposition home or self-care (01) ==
LOC: US 10:26
PROVIDERS: PCP Family Medicine; Referring Provider Obstetrics & Gynecology; Visit Provider Obstetrics & Gynecology
DX: N83.209 Unspecified ovarian cyst, unspecified side (principal)
CPT/HCPCS: 76830; 76856

== ENCOUNTER → 2024-11-21 | Outpatient (CLI) | payer OTHER, SELFPAY ==
[2024-11-21 09:43] LABS: Vitamin D,25 Hydroxy 17.1 ng/mL (30-100)
[2024-11-21 10:31] LABS: ALB/GLOB Ratio 1.3 RATIO (0.9-2.4); AST(SGOT) 21 U/L (<=31); Alanine Aminotransfer ALT/SGPT 27 U/L (<=34); Alkaline Phosphatase 90 U/L (35-104); Anion Gap 11 (5-15); BUN 19 mg/dL (4-19); BUN/Creat Ratio 21.3 RATIO (10-20); Calcium,Total 9.3 mg/dL (7.6-11.0); Chloride 102 mmol/L (98-108); Creatinine, Serum 0.91 mg/dL (0.70-1.20); EST Glomerular Filtration Rate 77 (>60); Globulin 3.1 g/dL (2.2-4.2); Glucose 95 mg/dL (70-99); Potassium 3.8 mmol/L (3.3-5.1); Protein, Total 7.1 g/dL (5.9-8.4); Sodium Level 138 mmol/L (133-145); Total Bilirubin 0.74 mg/dL (0.00-1.30)
== END | disposition home or self-care (01) ==
LOC: LAB 07:37
PROVIDERS: PCP Family Medicine; Referring Provider Internal Medicine Endocrinology, Diabetes & Metabolism; Visit Provider Internal Medicine Endocrinology, Diabetes & Metabolism
DX: E89.0 Postprocedural hypothyroidism (principal)
CPT/HCPCS: 36415; 80053; 82306; 84443

== ENCOUNTER 2024-12-11 13:12 | Emergency (ER) | payer OTHER, SELFPAY ==
[2024-12-11 13:13] VITALS: BP 167/105; PULSE 75; RESP 16; TEMP 36.2; O2SAT 100; BMI 31.8
--- NOTE | 2024-12-11 14:04 | EKG12_ITS ---
Test Reason : HTN Blood Pressure : */* mmHG Vent. Rate : 63 BPM Atrial Rate : 63 BPM P-R Int : 162 ms QRS Dur : 92 ms QT Int : 424 ms P-R-T Axes : 13 62 32 degrees QTcB Int : 433 ms Normal sinus rhythm Normal ECG Confirmed by MEGA MATA, ZAHEER ([id number]), editor map JULITA STRONG ([id number]) on 12/12/2024 8:38:34 AM Referred By: Ridge Aceves Confirmed By: ZAHEER AYOUB MD
--- NOTE | 2024-12-11 14:06 | EX.ED.DYSGE1 ---
HPI <MICHELLE Roberto - Last Filed: 12/11/24 20:08> History of Present Illness Chief Complaint: Hypertension Narrative Narrative: Patient presenting today due to concerns for elevated blood pressure. She reports that she does check her blood pressure daily, this morning it was around 130 and 140 systolic. 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 She then prompted her to come to the emergency department to be evaluated. She reports that she has had a headache since yesterday morning. She does have a history of similar headaches with her elevated blood pressure. She denies any history of brain aneurysm. She denies injury to her left arm. She denies any significant cardiac history or history of blood clots/recent surgery/travel/immobilization. She denies fevers, chills, chest pain, abdominal pain, vomiting, and shortness of breath. [facility] <MICHELLE Roberto - Last Filed: 12/11/24 20:08> [facility] Medical History Papular rash Hypertension PONV (postoperative nausea and vomiting) Thyroid disease Migraine headache Non-smoker Leg cramps History of edema Cellulitis of trunk, unspecified Home Medications ?Medication ?Instructions ?Recorded ?Last Taken ?Type hydrochlorothiazide 25 mg tablet 25 mg PO DAILY 03/29/24 04/18/24 History levothyroxine 125 mcg capsule 125 mcg PO DAILY 03/29/24 04/18/24 History lisinopril 10 mg tablet 10 mg PO DAILY 03/29/24 04/18/24 History sertraline 25 mg tablet 25 mg PO DAILY 03/29/24 04/18/24 History loratadine 10 mg tablet 10 mg PO DAILY 04/12/24 04/18/24 History (Joe) hydroxyzine pamoate 25 mg capsule 25 mg PO TID PRN itching #14 caps 11/01/24 Unknown Rx permethrin 5 % topical cream 1 applic topical Q14D 2 doses #60 11/01/24 Unknown Rx grams Allergy/AdvReac Type Severity Reaction Status Date / Time No Known Allergies Allergy Verified 11/01/24 16:42 Surgical History S/P History of back surgery S/P thyroidectomy Social History household members: spouse current occupational status: employed current occupation: [employer] Smoking Status: Never smoker alcohol intake: never substance use type: does not use seatbelt use: always do you feel safe at home: Yes 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 [employer] ROS <MICHELLE Roberto - Last Filed: 12/11/24 20:08> ROS ED Constitutional Constitutional ED: Denies chills or fever(s) Cardiovascular Cardiovascular: Denies chest pain or palpitations Respiratory/Chest Respiratory/Chest: Denies dyspnea Gastrointestinal Gastrointestinal: Reports nausea; Denies abdominal pain or vomiting Musculoskeletal Musculoskeletal: Reports arthralgias Integumentary Denies rash Neurologic Neurologic: Reports headache(s); Denies paresthesias or weakness EXAM <MICHELLE Roberto - Last Filed: 12/11/24 20:08> Physical Exam Const Vital Signs: 12/11/24 13:13 12/11/24 14:12 12/11/24 14:12 Temperature 97.1 F L Temperature Source Temporal Pulse Rate 75 87 Respiratory Rate 16 18 Respiratory Pattern Blood Pressure 167/105 H 177/114 H Blood Pressure Mean 125 135 Pulse Ox 100 100 Oxygen Delivery Method Room Air Room Air 12/11/24 14:32 12/11/24 15:00 12/11/24 15:48 Temperature Temperature Source Pulse Rate 64 Respiratory Rate 18 Respiratory Pattern Normal Blood Pressure 152/83 H 150/91 H Blood Pressure Mean 106 110 Pulse Ox 98 Oxygen Delivery Method Room Air 12/11/24 15:58 12/11/24 16:51 Temperature 98.1 F Temperature Source Pulse Rate 62 59 L Respiratory Rate 14 15 Respiratory Pattern Blood Pressure 150/91 H 138/83 H Blood Pressure Mean 110 101 Pulse Ox 98 99 Oxygen Delivery Method Room Air Positive well nourished, well developed and no apparent distress General Appearance ED: well developed HEENT Reports normocephalic and head/scalp atraumatic Mouth ED: Yes moist mucous membranes normal Eyes PERRL and EOMs intact bilaterally Neck full ROM and supple Chest Wall inspection of chest normal Resp normal respiratory effort and clear to auscultation bilaterally Cardio regular rate and regular rhythm GI soft to palpation, non-tender, non-distended and no masses Back/Spine normal ROM and normal to inspection Extremity normal to inspection and full ROM Extremity Narrative: Left radial pulse 2+, good cap refill, sensation intact. Neuro oriented x3, CN's II-XII intact bilaterally, moves all extremities, no focal motor deficits and no sensory deficits noted Sensorium / Orientation: awake and alert Psych mental status grossly normal and thought process normal Skin no rashes or lesions noted and no wounds <Dr. Ridge Aceves DO - Last Filed: 12/11/24 16:56> Physical Exam Const Vital Signs: 12/11/24 13:13 12/11/24 14:12 12/11/24 14:12 Temperature 97.1 F L Temperature Source Temporal Pulse Rate 75 87 Respiratory Rate 16 18 Respiratory Pattern Blood Pressure 167/105 H 177/114 H Blood Pressure Mean 125 135 Pulse Ox 100 100 Oxygen Delivery Method Room Air Room Air 12/11/24 14:32 12/11/24 15:00 12/11/24 15:48 Temperature Temperature Source Pulse Rate 64 Respiratory Rate 18 Respiratory Pattern Normal Blood Pressure 152/83 H 150/91 H Blood Pressure Mean 106 110 Pulse Ox 98 Oxygen Delivery Method Room Air 12/11/24 15:58 12/11/24 16:51 Temperature 98.1 F Temperature Source Pulse Rate 62 59 L Respiratory Rate 14 15 Respiratory Pattern Blood Pressure 150/91 H 138/83 H Blood Pressure Mean 110 101 Pulse Ox 98 99 Oxygen Delivery Method Room Air [facility] <MICHELLE Roberto - Last Filed: 12/11/24 20:08> [facility] Narrative Medical decision making narrative: Patient presenting today due to concerns for elevated blood pressure, left-sided arm pain, and a headache behind her eyes she has had intermittently since yesterday. She has a history of high blood pressure, after she developed the left arm pain she went to the school nurse and her blood pressure was elevated, prompting her to come in to be seen. Initially her blood pressure was 167/105. She has had headaches similar to this in the past, it does not seem consistent with SAH. Cardiac workup obtained, CBC, BMP, delta troponin are unremarkable. She is not short of breath, examination not consistent with a PE. Chest x-ray negative for any acute cardiopulmonary abnormality. EKG is normal sinus rhythm. She was given IV Zofran and Toradol and on reexamination reports improvement of her symptoms. Repeat blood pressure is 138/83. I recommended she keep an eye on her blood pressure, she was recently taken off of her HCTZ due to an allergic reaction from it. She is still taking lisinopril. I recommended she keep a log of her blood pressure and follow-up with her PCP in the next 5 to 7 days to discuss potential medication adjustments if needed. Patient discharged home in stable condition. Lab Data Attestation: I reviewed the patient's lab results. Labs: Laboratory Results - last 24 hr 12/11/24 12/11/24 14:25 16:15 WBC 7.2 RBC 4.22 Hgb 12.1 Hct 37.1 MCV 87.9 MCH 28.7 MCHC 32.6 RDW Std Deviation 45.6 H RDW Coeff of Irineo 14.3 Plt Count 294 MPV 9.3 Immature Gran % (Auto) 0.300 Neut % (Auto) 59.3 Lymph % (Auto) 31.8 Letcher % (Auto) 5.6 Eos % (Auto) 2.2 Baso % (Auto) 0.8 Absolute Neuts (auto) 4.3 Absolute Lymphs (auto) 2.28 Nucleated RBC % 0 Sodium 141 Potassium 3.8 Chloride 107 Carbon Dioxide 21.1 Anion Gap 13 BUN 14 Creatinine 0.94 Estim Creat Clear Calc 87.49 Est GFR (MDRD) Non-Af 74 BUN/Creatinine Ratio 14.8 Glucose 85 Calcium 9.5 Troponin T High Sens 10 Troponin T Hi Sens 2 Hr 9 Radiography Diagnostic Testing: Clinical Impression(s) from Imaging Studies Chest X-Ray 12/11/24 14:50 IMPRESSION: NO ACUTE FINDINGS. Reading Location: [place] [id number] EKG Initial EKG: Comments: 63 bpm, normal sinus rhythm, no ST elevation, interpreted by attending ED physician <Dr. Ridge Aceves, DO - Last Filed: 12/11/24 16:56> [facility] Lab Data Labs: Laboratory Results - last 24 hr 12/11/24 12/11/24 14:25 16:15 WBC 7.2 RBC 4.22 Hgb 12.1 Hct 37.1 MCV 87.9 MCH 28.7 MCHC 32.6 RDW Std Deviation 45.6 H RDW Coeff of Irineo 14.3 Plt Count 294 MPV 9.3 Immature Gran % (Auto) 0.300 Neut % (Auto) 59.3 Lymph % (Auto) 31.8 Letcher % (Auto) 5.6 Eos % (Auto) 2.2 Baso % (Auto) 0.8 Absolute Neuts (auto) 4.3 Absolute Lymphs (auto) 2.28 Nucleated RBC % 0 Sodium 141 Potassium 3.8 Chloride 107 Carbon Dioxide 21.1 Anion Gap 13 BUN 14 Creatinine 0.94 Estim Creat Clear Calc 87.49 Est GFR (MDRD) Non-Af 74 BUN/Creatinine Ratio 14.8 Glucose 85 Calcium 9.5 Troponin T High Sens 10 Troponin T Hi Sens 2 Hr 9 Radiography Diagnostic Testing: Clinical Impression(s) from Imaging Studies Chest X-Ray 12/11/24 14:50 IMPRESSION: NO ACUTE FINDINGS. Reading Location: [facility] Treatment and Re-Evaluation :: I have personally performed a face to face assessment of the patient and have reviewed the RILEY Note. I performed a substantive portion of the visit including all aspects of the following. My roberto findings include: History: Patient presents with elevated blood pressure that became worse today. Patient states her blood pressure was up to 190s systolic. Patient states she had some pain in her left posterior upper arm today while she was at work. Patient describes her pain as dull. Patient denies any shortness of breath. Patient admits to some nausea but denies any vomiting. Patient states that her primary care physician was changing her blood pressure medications because she broke out into a rash with hydrochlorothiazide. Exam: Vital signs are stable except for an elevated blood pressure 167/105. Patient is afebrile. Patient is in no acute distress. Oral mucosa is pink and moist. Neck is supple. Trachea is midline. There is no JVD. Heart was regular rate and rhythm. Lungs are clear and equal bilaterally. Abdomen is soft. Bowel sounds are normal. There is no tenderness. Cranial nerves II through XII are intact. There are no focal motor or sensory deficits noted. Extremities are intact. There is no edema or tenderness. Medical Decision Making: Differential diagnosis includes hypertensive urgency, hypertensive emergency, uncontrolled hypertension, electrolyte abnormality, cardiac dysrhythmia, cardiac ischemia, and anxiety. EKG will be obtained to assess for cardiac dysrhythmia and cardiac ischemia. Chest x-ray will be obtained to assess for pneumonia and bronchitis. CBC will be obtained to assess for leukocytosis and anemia. Basic metabolic profile will be obtained to assess for electrolyte abnormality or renal function. High-sensitivity troponin will be obtained to assess for cardiac ischemia. 2-hour repeat high-sensitivity troponin will be obtained to assess for ongoing cardiac ischemia. EKG was obtained. On my independent interpretation, it showed a normal sinus rhythm with a rate of 63. [place] interval, QRS interval, and QTc intervals were all normal. [place] was normal. There are no acute ST or T wave changes. CBC was reviewed and was within normal limits. Basic metabolic profile was reviewed and was within normal limits. Initial high-sensitivity troponin was reviewed and was normal at 10. 2-hour repeat high-sensitivity troponin was reviewed and was normal at 9. Patient's blood pressure improved to 138/83. Patient was advised of her findings. Patient was instructed to monitor her blood pressure. Patient was instructed to the log of her blood pressures. Patient was instructed to follow-up with her primary care physician in 5 to 7 days for further evaluation and management of her blood pressure. Patient understood and was agreeable with the plan. All questions were answered. Discharge Plan Triage Chief Complaint: Hypertension ED Midlevel Provider: Caitie Watters ED Provider: Ridge Aceves Dx/Rx/DC Orders Clinical Impression: History of hypertension, Elevated blood pressure reading, Pain of left arm Instructions: Hypertension Dc Prescriptions: No Action sertraline 25 mg tablet 25 mg PO DAILY lisinopril 10 mg tablet 10 mg PO DAILY hydrochlorothiazide 25 mg tablet 25 mg PO DAILY levothyroxine 125 mcg capsule 125 mcg PO DAILY permethrin 5 % cream 1 applic topical Q14D Qty: 60 0RF Rx Instructions: apply second treatment 14 days after first treatment if live lice remain hydroxyzine pamoate 25 mg capsule 25 mg PO TID PRN (Reason: itching) Qty: 14 0RF loratadine [Allerclear] 10 mg tablet 10 mg PO DAILY Primary Care Provider: Pramod Ford Referrals: Pramod Ford DO [Primary Care Provider] - 5-7 Days Activity Restrictions/Additional Instructions: Follow-up with your PCP and return for any worsening symptoms. Keep track of blood pressure to present to your PCP at next appointment. Print Language: Icelandic Disposition Disposition: Home, Self Care Discharge Date/Time: 12/11/24 16:54
[2024-12-11 14:12] VITALS: BP 177/114; PULSE 87; RESP 18; O2SAT 100
[2024-12-11 14:33] LABS: Absolute Lymphocyte Count 2.28 X10^3/uL (0.83-4.51); Absolute Neutrophil Count 4.3 X10^3/uL (2.0-7.7); Basophil# 0.06 X10^3/uL; Basophil% 0.8 % (0-1); Eosinophil# 0.16 X10^3/uL; Eosinophils% 2.2 % (0-5); Hematocrit 37.1 % (37-47); Hemoglobin 12.1 g/dL (12.0-15.0); Lymphocyte # 2.28 X10^3/ul (0.83-4.51); Lymphocyte % 31.8 % (19-41); Mean Corp Hgb Conc 32.6 g/dL (32-36); Mean Corpuscular Hgb 28.7 pg (27.0-32.0); Mean Corpuscular Volume 87.9 fL (81-99); Mean Platelet Vol. 9.3 fl (6.2-12.0); Monocyte% 5.6 % (0-10); NRBC Flagged by Analyzer 0 % (0-5); Neutrophil # 4.26 X10^3/uL (2.7-7.7); Neutrophil % 59.3 % (47-70); Platelet Count 294 K/mm3 (150-450); RBC Distribution Width CV 14.3 % (11.6-14.6); RBC Distribution Width SD 45.6 fl (35.1-43.9); Red Blood Count 4.22 M/mm3 (4.2-5.4); White Blood Count 7.2 K/mm3 (4.4-11.0)
[2024-12-11] MEDS: Ondansetron 4 MG/2 ML Vial IV (14:41)
[2024-12-11] MEDS: Ketorolac 15 MG/ML Vial IV (14:41)
--- NOTE | 2024-12-11 14:50 | RAD_ITS ---
PROCEDURE: CHEST PA AND LATERAL 12/11/2024 REASON FOR EXAM: CHEST PAIN TECHNIQUE: Frontal and lateral views of the chest. COMPARISON: Comparison is made with prior study dated January 26, 2024. FINDINGS: Hardware: EKG electrodes are seen. Heart: The heart size is normal. Mediastinum: The mediastinal contour is unremarkable. Lungs: The lungs are clear. Bones: The bones are unremarkable. RAD/Chest PA and Lateral IMPRESSION: NO ACUTE FINDINGS. Reading Location: [facility]
[2024-12-11 14:53] LABS: Anion Gap 13 (5-15); BUN 14 mg/dL (4-19); BUN/Creat Ratio 14.8 RATIO (10-20); Calcium,Total 9.5 mg/dL (7.6-11.0); Carbon Dioxide 21.1 mmol/L (21.0-32.0); Chloride 107 mmol/L (98-108); Creatinine, Serum 0.94 mg/dL (0.70-1.20); EST Glomerular Filtration Rate 74 (>60); Estimated Creatinine Clearance 87.49 ml/min (50-250); Glucose 85 mg/dL (70-99); Potassium 3.8 mmol/L (3.3-5.1); Sodium Level 141 mmol/L (133-145); Troponin T High Sensitivity 10 ng/L (<=14)
[2024-12-11 15:00] VITALS: BP 152/83; PULSE 64; RESP 18; O2SAT 98
[2024-12-11 15:48] VITALS: BP 150/91
[2024-12-11 15:58] VITALS: BP 150/91; PULSE 62; RESP 14; O2SAT 98
[2024-12-11 16:43] LABS: Troponin T High Sens 2 HR 9 ng/L (<=14)
[2024-12-11 16:51] VITALS: BP 138/83; PULSE 59; RESP 15; TEMP 36.7; O2SAT 99
== END 2024-12-11 16:54 | disposition home or self-care (01) ==
PROVIDERS: Physician Assistant; Emergency Provider Emergency Medicine; PCP Family Medicine; Referring Provider Emergency Medicine; Visit Provider Emergency Medicine
DX: M79.602 Pain in left arm (principal); R51.9 Headache, unspecified; R03.0 Elevated blood-pressure reading, without diagnosis of hypertension; R11.0 Nausea; E07.9 Disorder of thyroid, unspecified
CPT/HCPCS: 71046; 80048; 84484; 85025; 93005; 96374; 96375; 99285; A4216; J2405

== ENCOUNTER → 2025-07-20 | Outpatient (CLI) | payer OTHER, SELFPAY ==
[2025-07-20 09:13] LABS: AST(SGOT) 27 U/L (<=31); Alanine Aminotransfer ALT/SGPT 33 U/L (<=34); Albumin, Serum 4.2 g/dL (3.5-5.0); Alkaline Phosphatase 92 U/L (35-104); Anion Gap 11 (5-15); BUN 18 mg/dL (4-19); BUN/Creat Ratio 17.5 RATIO (10-20); Calcium,Total 9.6 mg/dL (7.6-11.0); Carbon Dioxide 24.6 mmol/L (21.0-32.0); Chloride 102 mmol/L (98-108); Globulin 3.0 g/dL (2.2-4.2); Glucose 99 mg/dL (70-99); Potassium 4.7 mmol/L (3.3-5.1); Vitamin D,25 Hydroxy 80.7 ng/mL (30-100)
== END | disposition home or self-care (01) ==
LOC: LAB 07:11
PROVIDERS: PCP Family Medicine; Referring Provider Internal Medicine Endocrinology, Diabetes & Metabolism; Visit Provider Internal Medicine Endocrinology, Diabetes & Metabolism
DX: E89.0 Postprocedural hypothyroidism (principal); E55.9 Vitamin D deficiency, unspecified
CPT/HCPCS: 36415; 80053; 82306; 84443